=== PATIENT | female | born 1930 | race Caucasian/White ===

== ENCOUNTER 2018-03-31 16:13 | Inpatient (IN) | payer OTHER, BC ==
--- NOTE | 2018-03-31 16:27 | PDOC ---
History of Present Illness - General Stated Complaint: WEAKNESS Time Seen by Provider: 03/31/18 16:26 History Source: Care Provider, Friend - History of Present Illness Initial Comments: 03/31/18 17:15 87 year old female with PMH COPD, bronchitis, giant cell temporal arteritis, HLD, HTN, diverticulosis, GERD, CHF, HTN, paroxsymal atrial fibrillation, dementia presenting to ED for decreased oral intake, abdominal pain and vomiting x11 days. Per medical aid pt has been vomiting every meal she has consumed since a couple of days after she was discharged from [facility]. She was admitted 03/09/18 for decreased oral intake and nausea, was diagnosed with a partial SBO and hypokalemia, and was discharged on 03/18/18. Pt also complains of left flank pain, better with rest, worse with movement or palpation, since she left the hospital. Pt admits to generalized weakness and lightheadedness. Pt denies chest pain, shortness of breath, palpitations, cough, blood in stool, hematuria, dysuria, dizziness, limb weakness, fever, chills, sweats. PCP - Julia Allergies - Codeine 03/31/18 18:10 Pt's son arrived. He states that she has been able to keep down some soup and jello. He reports that she has "pain all over" normally and that the pain to palpation of her lower extremities is normal for her. Past History - Past Medical History Allergies/Adverse Reactions: Allergies Allergy/AdvReac Type Severity Reaction Status Date / Time codeine Allergy Intermediate Verified 03/31/18 17:18 Home Medications: Ambulatory Orders Alprazolam 0.25 mg PO BID 03/14/15 Atorvastatin Ca [Lipitor] 10 mg PO HS 03/14/15 Furosemide [Lasix -] 40 mg PO BID 03/14/15 Losartan Potassium 50 mg PO DAILY 03/14/15 Mesalamine [Lialda] 3.6 gm PO DAILY 03/14/15 Ranitidine [Zantac -] 150 mg PO DAILY 03/14/15 Cholecalciferol (Vitamin D3) [Vitamin D3] 1,000 unit PO DAILY 01/22/18 Cyanocobalamin (Vitamin B-12) [Vitamin B-12] 2,500 mcg SL ASDIR 01/22/18 Prednisone 5 mg PO BID #100 tablet 01/26/18 Primidone 50 mg PO DAILY 03/09/18 Anemia: Yes Asthma: No Cancer: No Cardiac Disorders: Yes ([place], ASHD, HCVD) CVA: Yes ([place]) COPD: Yes CHF: Yes DVT: No Dementia: No Diabetes: No GI Disorders: Yes (GERD, DIVERTCULOSIS) Disorders: No HTN: Yes Hypercholesterolemia: Yes Liver Disease: No Seizures: No Thyroid Disease: No - Surgical History Abdominal Surgery: No Appendectomy: No Cardiac Surgery: No Cholecystectomy: Yes Lung Surgery: No Neurologic Surgery: No Orthopedic Surgery: No - Immunization History Immunization Up to Date: Yes - Suicide/Smoking/Psychosocial Hx Smoking Status: No Smoking History: Former smoker Have you smoked in the past 12 months: No Number of Cigarettes Smoked Daily: 0 If you are a former smoker, when did you quit?: many years ago Hx Alcohol Use: No Drug/Substance Use Hx: No Substance Use Type: None Hx Substance Use Treatment: No Review of Systems - Review of Systems Able to Perform ROS?: Yes Comments:: 03/31/18 17:31 General: admits to generalized weakness. denies fever, chills, night sweats. HEENT: denies sore throat, rhinorrhea, ear pain. Heart: admits to lightheadedness. denies chest pain, palpitations, syncope, lower extremity swelling, diaphoresis. Respiratory: denies shortness of breath, cough, sputum production, hematemesis. Abdomen: admits to abdominal pain, nausea, vomiting. denies diarrhea, constipation, blood in stool. : admits to left flank pain. denies dysuria, increased urinary frequency, hematuria, urinary incontinence. Back: denies back pain. Musculoskeletal: denies joint pain, muscle pain, joint swelling. Neurological: denies headache, dizziness, numbness, tingling, weakness. Skin: admits to wound to left lower extremity. *Physical Exam - Physical Exam Comments: 03/31/18 17:38 Appearance: comfortable. HEENT: head is normocephalic, atraumatic. EOMI. PERRLA. Neck: supple. Full ROM. Heart: regular rhythm. no murmurs, rubs or gallops. No pericardial friction rub. Lungs: clear to auscultation bilaterally. no crackles, rhonchi or wheezing. no stridor. Abdomen: soft, nontender. normal bowel sounds. no rebound, guarding. left flank ptenderness to palpation. Extremities: Peripheral pulses intact and equal. No lower extremity edema. Neurological: Alert. Oriented to person and place. CN 2-12 grossly intact. Moves all four extremities. Skin: two small ulcers to anterior left lower leg, dressing re-applied. generalized tenderness to palpation of right lower extremity and left lower extremity. 03/31/18 17:58 Pt reassessed. Abdomen: soft. tenderness to palpation to RLQ and RUQ, worse in RLQ. no rebound. no guarding. unable to perform obturator or psoas test due to pt's leg pain. Heart Score/ECG Review - ECG Impressions Comment:: 03/31/18 18:39 Rate 97, regular rhythm, normal axis, ST depression V3, V3. Similar to prior EKG performed on 03/09/18. ED Treatment Course - LABORATORY CBC & Chemistry Diagram: 04/01/18 06:00 04/01/18 06:00 Medical Decision Making - Medical Decision Making 03/31/18 17:40 87 year old female with PMH COPD, bronchitis, giant cell temporal arteritis, HLD , HTN, diverticulosis, GERD, CHF, HTN, paroxsymal atrial fibrillation, dementia c/o nausea, abdominal pain, left flank pain, generalized weakness, lightheadedness x11 days. Pt was recently admitted for partial SBO, discharged on 03/18/18. Initial Vital Signs Temp Pulse Resp BP Pulse Ox 97.3 F L 100 H 22 103/78 99 03/31/18 17:03 03/31/18 17:03 03/31/18 17:03 03/31/18 17:03 03/31/18 17:03 Pending labs, EKG, CXR, CT abdomen. 03/31/18 18:39 Leukocytosis - 12.5 Left shift with elevated neutrophils. 03/31/18 19:05 Cardiac profile hemolyzed, order re-entered. I discussed the case with Dr. Leong, who will assume care for the patient in the Emergency Department. *DC/Admit/Observation/Transfer Diagnosis at time of Disposition: History of food intolerance, Nausea and vomiting - Discharge Dispostion Condition at time of disposition: Guarded - Referrals - Patient Instructions - Post Discharge Activity
[2018-03-31] MEDS ORDERED: ONDANSETRON 4 MG/2 ML VIAL IVPUSH ONE (18:01)
[2018-03-31 18:08] LABS: BASO % 0.3 % (0-2.0); EOS % 0.1 % (0-4.5); HEMATOCRIT 39.1 % (32.4-45.2); HEMOGLOBIN 12.6 GM/dL (10.7-15.3); LYMPH % 8.6 % (8-40); MCH 32.8 pg (25.7-33.7); MCHC 32.2 g/dl (32.0-36.0); MEAN PLT VOLUME 11.1 fl (7.5-11.1); MONO % 6.2 % (3.8-10.2); NEUT % 84.8 % (42.8-82.8); PLATELET COUNT 313 K/MM3 (134-434); RBC 3.83 M/mm3 (3.60-5.2); WHITE BLOOD COUNT 12.5 K/mm3 (4.0-10.0)
--- NOTE | 2018-03-31 18:10 | PDOC ---
Attending Attestation - Resident Resident Name: Michelle Smith - ED Attending Attestation I have performed the following: I have examined & evaluated the patient, The case was reviewed & discussed with the resident, I agree w/resident's findings & plan, Exceptions are as noted - HPI HPI: 03/31/18 18:08 87 yo female came in with aide who states that the pt has had nausea,vomiting, diarrhea and left flank pain since her discharge Mar 23 - Physicial Exam PE: 03/31/18 18:27 87 yo female BIBA from home with home health aide head ncat oral dry,mucus membranes neck supple lungs cta b/l cvs [id number] abd rt flank tenderness skin dry and warm neuro alert,moving her extremities - Medical Decision Making 03/31/18 18:10 87 yo female recently admitted 03/09/18 for partial SBO and d/c Mar 23 is here today for persistent vomiting and loose stools and decreased po intake PMH anemia,HTN,HLD,GERD,dementia,SBO 03/31/18 18:13 ekg nsr @97 bpm,
[2018-03-31 18:17] LABS: INR 0.96 (0.83-1.09); PROTHROMBIN TIME (PATIENT) 10.9 SEC (9.7-13.0)
[2018-03-31 18:20] LABS: ACTIVATED PTT 19.7 SECONDS (25.2-36.5)
[2018-03-31 19:05] LABS: ANISOCYTOSIS 1+; MACROCYTOSIS 1+; PLATELET ESTIMATE ADEQUATE
[2018-03-31] MEDS ORDERED: ONDANSETRON 4 MG/2 ML VIAL ONE ×2 (19:15→19:52)
--- NOTE | 2018-03-31 19:31 | PDOC ---
*Physical Exam - Vital Signs Last Vital Signs Temp Pulse Resp BP Pulse Ox 97.3 F L 100 H 22 103/78 99 03/31/18 17:03 03/31/18 17:03 03/31/18 17:03 03/31/18 17:03 03/31/18 17:03 ED Treatment Course - LABORATORY CBC & Chemistry Diagram: 03/31/18 17:30 03/31/18 19:20 - ADDITIONAL ORDERS Additional order review: Laboratory Results 03/31/18 03/31/18 03/31/18 17:30 17:30 17:30 PT with INR 10.90 INR 0.96 PTT (Actin FS) 19.7 L Lactic Acid 1.1 Creatine Kinase Cancelled Troponin I Cancelled 03/31/18 17:30 RBC 3.83 MCV 102.0 H MCHC 32.2 RDW 19.0 H MPV 11.1 Neutrophils % 84.8 H Lymphocytes % 8.6 D Monocytes % 6.2 Eosinophils % 0.1 D Basophils % 0.3 - Medications Given in the ED: ED Medications Discontinued Medications Generic Name Dose Route Start Last Admin Trade Name Freq PRN Reason Stop Dose Admin Ondansetron HCl 4 mg 03/31/18 18:01 03/31/18 19:15 Zofran Injection IVPUSH 03/31/18 18:02 4 mg ONCE ONE Administration Medical Decision Making - Medical Decision Making 03/31/18 19:30 The patient was signed out to me by , day team. The patient is an 87F who presents with intractable nausea and vomiting and inability to tolerate PO. BG noted to be 61. Giving 1 amp of D50. 03/31/18 22:01 I have endorsed the patient to [employer]PER[employer] Micaela for admission under Dr. Thomas. *DC/Admit/Observation/Transfer Diagnosis at time of Disposition: History of food intolerance Nausea and vomiting Qualifiers: Vomiting type: unspecified Vomiting Intractability: intractable Qualified Code( s): R11.2 - Nausea with vomiting, unspecified - Discharge Dispostion Condition at time of disposition: Guarded Decision to Admit order: Yes - Referrals Referrals: Lashanda Dumont MD [Primary Care Provider] - - Patient Instructions - Post Discharge Activity
[2018-03-31 19:53] LABS: URINE APPEARANCE CLOUDY; URINE BILIRUBIN NEGATIVE (<2.0 mg/dL); URINE COLOR YELLOW; URINE GLUCOSE (UA) NEGATIVE (NEGATIVE); URINE KETONE 2+ (NEGATIVE); URINE NITRITE NEGATIVE (NEGATIVE); URINE UROBILINOGEN NEGATIVE mg/dL (0.2-1.0)
[2018-03-31 19:59] LABS: URINE LEUK ESTERASE 3+ (NEGATIVE); URINE PROTEIN 1+ (NEGATIVE)
[2018-03-31 20:01] LABS: ALBUMIN 3.1 g/dl (3.4-5.0); ALK PHOS 123 U/L (45-117); ANION GAP 27 MMOL/L (8-16); BILIRUBIN,TOTAL 0.5 mg/dL (0.2-1.0); BLOOD UREA NITROGEN 18 mg/dL (7-18); CALCIUM 9.1 mg/dL (8.5-10.1); CHLORIDE 101 mmol/L (98-107); CO2 11 mmol/L (21-32); GLUCOSE,RANDOM 61 mg/dL (74-106); SGOT/AST 39 U/L (15-37); SGPT/ALT 28 U/L (12-78); SODIUM 139 mmol/L (136-145); TOT PROT 6.7 g/dl (6.4-8.2)
[2018-03-31 20:04] LABS: URINE BACTERIA RARE /hpf (NONE SEEN); URINE HYALINE CAST 7 /lpf
[2018-03-31] MEDS ORDERED: CEFTRIAXONE 1,000 MG in DEXTROSE 5%-WATER - 50 ML IVPB ONE (20:43)
[2018-03-31] MEDS ORDERED: CEFTRIAXONE 1 GM/50 ML BAG ONE (20:51)
[2018-03-31] MEDS ORDERED: DEXTROSE 50%-WATER 25 GM/50 ML DISP.SYRIN ONE (21:24)
[2018-03-31] MEDS ORDERED: DEXTROSE 50%-WATER - 25 GM/50 ML VIAL IVPUSH ONE (21:27)
--- NOTE | 2018-03-31 22:01 | HP ---
Admitting History and Physical - Admission History of Present Illness: This is a 87 y/o woman with a past medical history of COPD, Bronchitis, Giant Cell Temporal Arteritis, HLD, HTN, Diverticulosis, GERD, CHF, HTN, Paroxsymal Atrial Fibrillation, Dementia. Who presents to the ED from home with her INFORMATION SECURITY ASSOCIATE for decreased oral intake, abdominal pain and vomiting x11 days. Per the INFORMATION SECURITY ASSOCIATE, the patient has been vomiting every meal she has consumed since a couple of days after she was discharged from [facility]. She was admitted 03/09/18 for decreased oral intake and nausea, was diagnosed with a partial SBO and hypokalemia, and was discharged on 03/18/18. Pt also complains of left flank pain, better with rest, worse with movement or palpation, since she left the hospital. Pt admits to generalized weakness and lightheadedness. Pt denies chest pain, shortness of breath, palpitations, cough, blood in stool, hematuria, dysuria, dizziness, limb weakness, fever, chills, sweats. 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: Dementia Cardiovascular: Yes: AFIB, CAD, HTN, Hyperlipdemia Pulmonary: Yes: COPD Gastrointestinal: Yes: Gastritis, GERD Renal/: Yes: UTI Musculoskeletal: Yes: Chronic low back pain, Osteoarthritis, Other (compresion fx) Rheumatology: Yes: Other (ct ds) Endocrine: Yes: Other (osteoporosis) - Past Surgical History Past Surgical History: Yes: Cholecystectomy - Smoking History Smoking history: Former smoker Have you smoked in the past 12 months: No Aproximately how many cigarettes per day: 0 If you are a former smoker, when did you quit?: many years ago - Alcohol/Substance Use Hx Alcohol Use: No History of Substance Use: reports: None - Social History Usual Living Arrangement: Yes: With Parent ADL: Support Services History of Recent Travel: No Home Medications - Allergies Allergies/Adverse Reactions: Allergies Allergy/AdvReac Type Severity Reaction Status Date / Time codeine Allergy Intermediate Verified 03/31/18 17:18 - Home Medications Home Medications: Ambulatory Orders Alprazolam 0.25 mg PO BID 03/14/15 Atorvastatin Ca [Lipitor] 10 mg PO HS 03/14/15 Furosemide [Lasix -] 40 mg PO BID 03/14/15 Losartan Potassium 50 mg PO DAILY 03/14/15 Mesalamine [Lialda] 3.6 gm PO DAILY 03/14/15 Ranitidine [Zantac -] 150 mg PO DAILY 03/14/15 Cholecalciferol (Vitamin D3) [Vitamin D3] 1,000 unit PO DAILY 01/22/18 Cyanocobalamin (Vitamin B-12) [Vitamin B-12] 2,500 mcg SL ASDIR 01/22/18 Prednisone 5 mg PO BID #100 tablet 01/26/18 Primidone 50 mg PO DAILY 03/09/18 Family Disease History - Family Disease History Family History: Unable to Obtain Review of Systems Unable to obtain ROS, reason: Dementia Physical Examination Vital Signs: Vital Signs Temperature 97.3 F L 03/31/18 17:03 Pulse Rate 90 03/31/18 21:35 Respiratory Rate 18 03/31/18 21:35 Blood Pressure 110/45 03/31/18 21:35 O2 Sat by Pulse Oximetry (%) 99 03/31/18 21:35 Constitutional: Yes: Anxious Eyes: Yes: Conjunctiva Clear, PERRL HENT: Yes: WNL, Atraumatic, Normocephalic Neck: Yes: WNL, Supple, Trachea Midline Cardiovascular: Yes: Tachycardia, S1, S2 Respiratory: Yes: WNL, Regular, CTA Bilaterally Gastrointestinal: Yes: Hypoactive Bowel Sounds, Tenderness (generalized), Tenderness, Epigastrium ...Rectal Exam: Yes: Deferred Renal/: Yes: Incontinence Breast(s): Yes: WNL Musculoskeletal: Yes: WNL Extremities: Yes: WNL Edema: No Peripheral Pulses WNL: Yes Wound/Incision: Yes: Clean/Dry Neurological: Yes: Confusion, Cran Nerves II-XII Intact ...Motor Strength: WNL Psychiatric: Yes: Alert Labs: CBC, BMP 03/31/18 17:30 03/31/18 19:20 Laboratory Results - last 24 hr 03/31/18 03/31/18 03/31/18 17:30 17:30 17:30 WBC 12.5 H RBC 3.83 Hgb 12.6 Hct 39.1 D MCV 102.0 H MCH 32.8 MCHC 32.2 RDW 19.0 H Plt Count 313 D MPV 11.1 Absolute Neuts (auto) 10.6 H Total Counted 100 Neutrophils % 84.8 H Neutrophils % (Manual) 80.0 Band Neutrophils % 7.0 Lymphocytes % 8.6 D Lymphocytes % (Manual) 9.0 D Monocytes % 6.2 Monocytes % (Manual) 4 Eosinophils % 0.1 D Basophils % 0.3 Nucleated RBC % 0 Hypochromia 1+ Platelet Estimate Adequate Platelet Comment No clumping noted Anisocytosis 1+ Macrocytosis 1+ PT with INR 10.90 INR 0.96 PTT (Actin FS) 19.7 L Sodium Potassium Chloride Carbon Dioxide Anion Gap BUN Creatinine Creat Clearance w eGFR Random Glucose Lactic Acid Calcium Magnesium Total Bilirubin AST ALT Alkaline Phosphatase Creatine Kinase Cancelled Troponin I Cancelled Total Protein Albumin Lipase Urine Color Urine Appearance Urine pH Ur Specific Mize Urine Protein Urine Glucose (UA) Urine Ketones Urine Blood Urine Nitrite Urine Bilirubin Urine Urobilinogen Ur Leukocyte Esterase Urine WBC (Auto) Urine RBC (Auto) Urine Bacteria Hyaline Casts 03/31/18 03/31/18 03/31/18 17:30 17:30 19:20 WBC RBC Hgb Hct MCV MCH MCHC RDW Plt Count MPV Absolute Neuts (auto) Total Counted Neutrophils % Neutrophils % (Manual) Band Neutrophils % Lymphocytes % Lymphocytes % (Manual) Monocytes % Monocytes % (Manual) Eosinophils % Basophils % Nucleated RBC % Hypochromia Platelet Estimate Platelet Comment Anisocytosis Macrocytosis PT with INR INR PTT (Actin FS) Sodium Cancelled Potassium Cancelled Chloride Cancelled Carbon Dioxide Cancelled Anion Gap Cancelled BUN Cancelled Creatinine Cancelled Creat Clearance w eGFR Cancelled Random Glucose Cancelled Lactic Acid 1.1 Calcium Cancelled Magnesium 1.8 Total Bilirubin Cancelled AST Cancelled ALT Cancelled Alkaline Phosphatase Cancelled Creatine Kinase Troponin I Total Protein Cancelled Albumin Cancelled Lipase Cancelled Urine Color Urine Appearance Urine pH Ur Specific Mize Urine Protein Urine Glucose (UA) Urine Ketones Urine Blood Urine Nitrite Urine Bilirubin Urine Urobilinogen Ur Leukocyte Esterase Urine WBC (Auto) Urine RBC (Auto) Urine Bacteria Hyaline Casts 03/31/18 03/31/18 03/31/18 19:20 19:20 19:30 WBC RBC Hgb Hct MCV MCH MCHC RDW Plt Count MPV Absolute Neuts (auto) Total Counted Neutrophils % Neutrophils % (Manual) Band Neutrophils % Lymphocytes % Lymphocytes % (Manual) Monocytes % Monocytes % (Manual) Eosinophils % Basophils % Nucleated RBC % Hypochromia Platelet Estimate Platelet Comment Anisocytosis Macrocytosis PT with INR INR PTT (Actin FS) Sodium 139 Potassium 4.0 Chloride 101 Carbon Dioxide 11 L Anion Gap 27 H BUN 18 Creatinine 1.0 Creat Clearance w eGFR 52.45 Random Glucose 61 L Lactic Acid Calcium 9.1 Magnesium Total Bilirubin 0.5 AST 39 H ALT 28 Alkaline Phosphatase 123 H D Creatine Kinase 83 Troponin I 0.05 Total Protein 6.7 Albumin 3.1 L Lipase Urine Color Yellow Urine Appearance Cloudy Urine pH 6.0 Ur Specific Mize 1.012 Urine Protein 1+ H Urine Glucose (UA) Negative Urine Ketones 2+ H Urine Blood Negative Urine Nitrite Negative Urine Bilirubin Negative Urine Urobilinogen Negative Ur Leukocyte Esterase 3+ H Urine WBC (Auto) 478 Urine RBC (Auto) 6 Urine Bacteria Rare Hyaline Casts 7 Imaging - Results Chest X-ray: Report Reviewed, Image Reviewed Cat Scan: Report Reviewed, Image Reviewed EKG: Pending Assessment/Plan 87 y/o woman with a PMHx of Dementia, Afib, CAD, COPD, CAD, HTN, HLD, Gastritis , GERD, UTI placed in Observation for Intractable Vomiting, Abdominal Pain. Plan: 1. GI: Nausea and Vomiting, Abdominal Pain, Gastritis r/o Obstruction, Esophageal Stricture CTAP- no acute pathology Barium Swallow done 03/16/18- impaired propulsion of the bolus. with verbal cues and encouragement patient was able to tolerate all consistencies Appreciate GI consult Keep NPO IVF Monitor CBC, BMP Monitor vitals HOB elevated Aspiration Precautions 2. Cardiovascular: Afib, HTN, CAD, HLD EKG-pending Continue home meds when cleared by GI Monitor renal function Monitor LFTs 3. Dementia Continue home med Fall precautions 4. COPD stable Albuterol neb prn No current home med 5. FEN D51/2NS@42ml/hr Replete lytes prn NPO 6. DVT ppx TEDs SCDs Consider AC if LOS < 48hrs Code Status: Full Code Dispo: Observation Visit type - Emergency Visit Emergency Visit: Yes ED Registration Date: 03/31/18 Care time: The patient presented to the Emergency Department on the above date and was hospitalized for further evaluation of their emergent condition. - New Patient This patient is new to me today: Yes Date on this admission: 03/31/18 - Critical Care Critical Care patient: No Hospitalist Screening - Colonoscopy Questionnaire Colonoscopy Questionnaire: Colonoscopy Questionnaire - Patient: 50 - 75 years old and never had a screening colonoscopy: Unknown History of colon or rectal polyps, or CA: Unknown History of IBD, Crohn's disease or UC: Unknown History of abdominal radiation therapy as a child: Unknown - Relative: 1 with colon or rectal CA, or polyps at age 60 or younger: Unknown Colon or rectal CA diagnosed at age 45 or younger: Unknown Multiple relatives with colon or rectal CA: Unknown - Outcome: Screening Result: Negative Screen
[2018-03-31] MEDS ORDERED: DEXTROSE 5%-0.45% SALINE 1,000 ML IV SCH (22:15)
[2018-04-01 06:38] LABS: BASO % 0.7 % (0-2.0); EOS % 0.4 % (0-4.5); HEMATOCRIT 34.7 % (32.4-45.2); HEMOGLOBIN 11.2 GM/dL (10.7-15.3); LYMPH % 9.3 % (8-40); MCH 32.4 pg (25.7-33.7); MCHC 32.2 g/dl (32.0-36.0); MEAN CELL VOLUME 100.4 fl (80-96); MEAN PLT VOLUME 10.2 fl (7.5-11.1); MONO % 9.7 % (3.8-10.2); NEUT % 79.9 % (42.8-82.8); PLATELET COUNT 218 K/MM3 (134-434); RBC 3.46 M/mm3 (3.60-5.2); RDW 18.7 % (11.6-15.6); WHITE BLOOD COUNT 10.8 K/mm3 (4.0-10.0)
[2018-04-01 07:11] LABS: ANION GAP 19 MMOL/L (8-16); BLOOD UREA NITROGEN 21 mg/dL (7-18); CALCIUM 8.2 mg/dL (8.5-10.1); CHLORIDE 101 mmol/L (98-107); CO2 17 mmol/L (21-32); CREATININE 1.2 mg/dL (0.55-1.02); GLUCOSE,RANDOM 62 mg/dL (74-106); POTASSIUM 3.6 mmol/L (3.5-5.1); SODIUM 137 mmol/L (136-145)
--- NOTE | 2018-04-01 08:56 | PN ---
Progress Note, Physician History of Present Illness: 87 yo female with PMH anemia,HTN,HLD,GERD,dementia,SBO recently admitted for partial SBO and d/c Mar 23 came into the ER for persistent vomiting and loose stools and decreased po intake - Current Medication List Current Medications: Active Medications Dextrose/Sodium Chloride (D5-1/2ns -) 1,000 mls @ 42 mls/hr IV ASDIR MERLE Last Admin: 03/31/18 22:11 Dose: 42 mls/hr Ceftriaxone Sodium 1 gm/ (Dextrose) 50 mls @ 100 mls/hr IVPB DAILY MERLE; Protocol Ondansetron HCl (Zofran Injection) 4 mg IVPUSH Q6H PRN PRN Reason: NAUSEA - Objective Vital Signs: Vital Signs Temperature 97.4 F L 04/01/18 08:27 Pulse Rate 92 H 04/01/18 08:27 Respiratory Rate 20 04/01/18 08:27 Blood Pressure 112/70 04/01/18 08:27 O2 Sat by Pulse Oximetry (%) 99 04/01/18 06:44 Cardiovascular: Yes: S1, S2 Respiratory: Yes: Regular, Rales Gastrointestinal: Yes: Normal Bowel Sounds, Soft. No: Tenderness Labs: CBC, BMP 04/01/18 06:00 04/01/18 06:00 INR, PTT INR 0.96 (0.83-1.09) 03/31/18 17:30 Problem List - Problems (1) Nausea and vomiting Assessment/Plan: -REsolved -Await cultures -Cdif -GI consult -ID consult -PPI Code(s): R11.2 - NAUSEA WITH VOMITING, UNSPECIFIED Qualifiers: Vomiting type: unspecified Vomiting Intractability: intractable Qualified Code(s): R11.2 - Nausea with vomiting, unspecified (2) Anxiety Assessment/Plan: -Resume meds Code(s): F41.9 - ANXIETY DISORDER, UNSPECIFIED (3) CAD (coronary artery disease) Assessment/Plan: same meds no cp Code(s): I25.10 - ATHSCL HEART DISEASE OF [place] CORONARY ARTERY W/O ANG PCTRS (4) COPD (chronic obstructive pulmonary disease) Assessment/Plan: -Nebs Code(s): J44.9 - CHRONIC OBSTRUCTIVE PULMONARY DISEASE, UNSPECIFIED
[2018-04-01] MEDS ORDERED: MESALAMINE 3.6 GM PO SCH (10:00)
[2018-04-01] MEDS ORDERED: cefTRIAXone SODIUM 1 GM VIAL ONE (10:30)
[2018-04-01] MEDS ORDERED: DEXTROSE 5%-WATER - 50 ML IVPB ONE (10:30)
[2018-04-01] MEDS: ONDANSETRON 4 MG/2 ML VIAL IVPUSH PRN ×2 (10:32→20:34)
[2018-04-01] MEDS: CEFTRIAXONE 1 GM in DEXTROSE 5%-WATER - 50 ML IVPB SCH (10:36)
[2018-04-01] MEDS ORDERED: DEXTROSE 50%-WATER - 25 GM/50 ML VIAL IVPUSH PRN (10:53)
[2018-04-01] MEDS: DEXTROSE 5%-0.45% SALINE 1,000 ML IV SCH (11:09)
[2018-04-01] MEDS: LOSARTAN POTASSIUM 50 MG TABLET (FP) PO SCH (11:58)
[2018-04-01] MEDS: FUROSEMIDE 40 MG TABLET (FP) PO SCH ×2 (11:58→13:15)
[2018-04-01] MEDS: PANTOPRAZOLE SODIUM 40 MG VIAL IVPUSH SCH ×2 (11:59→22:56)
[2018-04-01] MEDS: ALPRAZolam 0.25 MG TABLET PO PRN ×2 (11:59→22:54)
[2018-04-01] MEDS: predniSONE 10 MG TABLET (UD) PO SCH ×2 (11:59→22:53)
[2018-04-01] MEDS: PRIMIDONE 50 MG TABLET PO SCH (12:01)
--- NOTE | 2018-04-01 12:20 | EKG ---
Test Reason : Blood Pressure : / mmHG Vent. Rate : 097 BPM Atrial Rate : 097 BPM P-R Int : 142 ms QRS Dur : 076 ms QT Int : 374 ms P-R-T Axes : 051 012 144 degrees QTc Int : [address] changes anterior and lateral leads c/w ischemia POSTERIOR INFARCT , AGE UNDETERMINED ABNORMAL ECG WHEN COMPARED WITH ECG OF 09-MAR-2018 17:05, NONSPECIFIC T WAVE ABNORMALITY NO LONGER EVIDENT IN ANTERIOR LEADS Confirmed by CARLOS GATES MD ([id number]) on 04/01/2018 12:19:55 PM Referred By: Confirmed By:CARLOS GATES MD
[2018-04-01 14:49] LABS: ANISOCYTOSIS 1+; MACROCYTOSIS 1+
--- NOTE | 2018-04-01 16:50 | CON.GI ---
Consult Consult Specialty:: Gastroenterology Reason for Consultation:: nausea / dyspepsia - History of Present Illness Chief Complaint: nausea with associated heaving as per daughter History of Present Illness: Mrs. tAkinson is an 87 year old woman with a PMHX of COPD, bronchitis, temporal arteritis, HLD, HTN, diverticulosis, GERD , CHF, Paroxysmal atrial fibrillation , dementia who presents to the ER with complaints of decreased PO intake , nausea and vomiting. As per agusto daughter, her mother has not been able to eat anything over agusto past week. In addition, she states she has been pooling food in her mouth and not swallowing. She states she dry heaves frequently and always feels nausea. She was recently admitted in February for SBO and hypokalemia. She was sen in the past by Dr. Cotton - last endoscopic procedures were performed approximately 5 years ago. There is no report of hemetemesis, melena, hematochezia, fever, chills, weight loss. - History Source History Provided By: Family Member, Medical Record Limitations to Obtaining History: Dementia - Past Medical History OUTSOLE CASER: Yes: Dementia Cardio/Vascular: Yes: AFIB, CAD, HTN, Hyperlipdemia Pulmonary: Yes: COPD Gastrointestinal: Yes: Gastritis, GERD Renal/: Yes: UTI ...: No Musculoskeletal: Yes: Chronic low back pain, Osteoarthritis, Other (compresion fx) Rheumatology: Yes: Other (ct ds) Endocrine: Yes: Other (osteoporosis) - Past Surgical History Past Surgical History: Yes: Cholecystectomy - Alcohol/Substance Use Hx Alcohol Use: No History of Substance Use: reports: None - Smoking History Smoking history: Former smoker Have you smoked in the past 12 months: No Aproximately how many cigarettes per day: 0 If you are a former smoker, when did you quit?: many years ago - Social History Usual Living Arrangement: With Significant Other ADL: Support Services History of Recent Travel: No Home Medications - Allergies Allergies/Adverse Reactions: Allergies Allergy/AdvReac Type Severity Reaction Status Date / Time codeine Allergy Intermediate Verified 03/31/18 17:18 - Home Medications Home Medications: Ambulatory Orders Alprazolam 0.25 mg PO BID 03/14/15 Atorvastatin Ca [Lipitor] 10 mg PO HS 03/14/15 Furosemide [Lasix -] 40 mg PO BID 03/14/15 Losartan Potassium 50 mg PO DAILY 03/14/15 Mesalamine [Lialda] 3.6 gm PO DAILY 03/14/15 Ranitidine [Zantac -] 150 mg PO DAILY 03/14/15 Cholecalciferol (Vitamin D3) [Vitamin D3] 1,000 unit PO DAILY 01/22/18 Cyanocobalamin (Vitamin B-12) [Vitamin B-12] 2,500 mcg SL ASDIR 01/22/18 Prednisone 5 mg PO BID #100 tablet 01/26/18 Primidone 50 mg PO DAILY 03/09/18 Family Disease History - Family Disease History Family History: Unremarkable Review of Systems Unable to obtain ROS, reason: poor historian Findings/Remarks: limited review provided by her daughter - as per HPI - Review of Systems Constitutional: reports: Loss of Appetite, Weakness Eyes: denies: No Symptoms, Blind Spots, Blurred Vision, Double Vision, Eye Pain , Floaters, Photophobia, Recent Change in Vision, Other HENT: denies: No Symptoms, Difficult Swallowing, Ear Discharge, Ear Pain, Epistaxis, Gingival Bleeding, Hearing Loss, Mouth Swelling, Nasal Congestion, Ocular Prosthesis, Throat Pain, Toothache, Ringing in Ears, Other Neck: denies: No Symptoms, Decreased ROM, Lumps, Pain on Movement, Stiffness, Swollen Glands, Tenderness, Other Respiratory: denies: No Symptoms, Cough, Exercise Intolerance, Hemoptysis, Orthopnea, PND, Snoring, SOB, SOB on Exertion, Wheezing, Other Gastrointestinal: reports: Nausea, Vomiting Genitourinary: denies: No Symptoms, Burning, Discharge, Dysuria, Flank Pain, Frequency, Hematuria, Incontinence, Lesions, Menses, Pain, Testicular Mass, Testicular Pain, Testicular Swelling, Urgency, Vaginal Bleeding, Other Physical Exam-GI Vital Signs: Vital Signs Temperature 97.8 F 04/01/18 13:09 Pulse Rate 88 04/01/18 13:09 Respiratory Rate 17 04/01/18 13:09 Blood Pressure 131/66 04/01/18 13:09 O2 Sat by Pulse Oximetry (%) 97 04/01/18 09:30 Constitutional: Yes: No Distress Eyes: No: WNL, Conjunctiva Clear, EOM Intact, Cataracts, Diplopia, Occular Prosthesis, PERRL, Ptosis, Sclera Icterus, Tearing, Other HENT: No: WNL, Atraumatic, Normocephalic, Drooling, Epistaxis, Hoarseness, Nasal Congestion, Pharyngeal Erythema, Rhinnorhea, Thrush, Tonsillar Exudate, Other Neck: No: WNL, Supple, Trachea Midline, Decreased ROM, Lymphadenopathy, Rigid, Tenderness, Thyromegaly, Other Cardiovascular: No: WNL, Regular Rate and Rhythm, Bradycardia, Tachycardia, Pulse Irregular, Bruit, JVD, Gallop, Murmur, Rub, S1, S2, S3, S4, Varicosities, Other Respiratory: No: WNL, Regular, CTA Bilaterally, Accessory Muscle Use, Bradypnea , Rosales-Negrete, Cough, Diminished, Dullness, Hyperresonant, Intubated, Kussmaul , Mechanically Ventilated, On BiPap, On Nasal O2, On Venti-Mask, Orthopnea, Poor Air Entry, Rales, Rhonchi, SOB, SOB on Exertion, Stridor, Tachypnea, Wheezes, Other Gastrointestinal Inspection: Yes: WNL, Other (soft abdomen , nontender , normal bowel sounds) Labs: CBC, BMP 04/01/18 06:00 04/01/18 06:00 INR, PTT INR 0.96 (0.83-1.09) 03/31/18 17:30 Imaging - Results Chest X-ray: Report Reviewed Ultrasound: Pending Problem List - Problems (1) Nausea & vomiting Assessment/Plan: Impression: 1. Nausea / vomiting and inability to tolerate PO intake DDX includes peptic ulcer disease /biliary / gastroparesis 2. ? Oropharyngeal Dysphagia (Ct scan reviewed - wnl ) Recommendation: - esophagram and upper GI series , if no structural abnormality obtain gastric emptying study to assess her motility. - obtain a formal speech and swallow evaluation / Video swallow study - Protonix 40 mg IV qam - c/w antiemetics - trial of clear liquid diet Code(s): R11.2 - NAUSEA WITH VOMITING, UNSPECIFIED (2) Dysphagia Code(s): R13.10 - DYSPHAGIA, UNSPECIFIED Assessment/Plan see plan above
[2018-04-01] MEDS ORDERED: PT OWN MED DRAWER 7, Y5N ONE (16:57)
--- NOTE | 2018-04-01 17:47 | PN ---
Progress Note (short form) - Note Progress Note: ID consult dictated 87 year old female admitted with intractable nausea and vomiting apparently unable to eat or drink at home no diarrhea recent admission for partial sbo ct scan unremarkable unable to void all day now with simon- cloudy urine 300 cc UTI/urinary retention nausea/vomiting continue rocephin f/u with GI d/w daughter at bedside Problem List - Problems (1) UTI (urinary tract infection) Code(s): N39.0 - URINARY TRACT INFECTION, SITE NOT SPECIFIED (2) Nausea & vomiting Code(s): R11.2 - NAUSEA WITH VOMITING, UNSPECIFIED
--- NOTE | 2018-04-01 19:45 | CONS ---
DATE OF CONSULTATION: 04/01/2018 HISTORY OF PRESENT ILLNESS: This is an 87-year-old woman who was recently in the hospital from the to the 18 of March with what was felt to be a partial small bowel obstruction that resolved with conservative treatment. She now returns on the with complaints of nausea and vomiting per the patient and her aide, who stays with her 24 hours a day. The patient lives alone. She has not been able to eat since she has gone home. They deny any diarrhea. They say that she vomits and has nausea both to food as well as liquid. She has had a regular bowel movement at home. There has been no fever or chills. There has been no chest pain. She notes abdominal discomfort. Per her daughter, who is also present, her mom has had complaints of nausea and lack of appetite and poor taste of food for months now since the spring. This has persisted without any improvement. PAST MEDICAL HISTORY: Notable for dementia, atrial fibrillation, coronary artery disease, hypertension, hyperlipidemia, COPD, gastritis, GERD. She has a history of UTI in the past, chronic low back pain, osteoarthritis, osteoporosis. As well, she has a history of giant cell temporal arteritis and diverticulosis. SURGICAL HISTORY: Notable for cholecystectomy. SOCIAL HISTORY: She is a former smoker and quit many years ago. She lives alone and has an aide 24 hours a day. ALLERGIES: CODEINE. MEDICATIONS AT HOME: Include ranitidine, primidone, prednisone, mesalamine, losartan, furosemide, B12, vitamin D3, atorvastatin, and alprazolam. REVIEW OF SYSTEMS: As per HPI. HOSPITAL COURSE: Since admission, she has not had any urine output. The Benson catheter was just placed and she had 300 mL of cloudy urine. PHYSICAL EXAMINATION: General: She is awake and alert. She keeps stating "help me" and saying that she is nauseous. Vital Signs: She has been afebrile. Temperature is 97.7, pulse 88, blood pressure 125/69, respiratory rate is 18. She is saturating 96% on room air. HEENT: She is normocephalic. Eyes are anicteric. Neck: Supple. Lungs: Clear to auscultation. Heart: Regular rate and rhythm. Abdomen: Soft. She complains of discomfort everywhere on palpation. She has no rebound or guarding. Extremities: Without edema. The Benson is draining cloudy urine. LABORATORY: White count on admission was 12.5, on repeat today is 10.8, hemoglobin 11.2, platelets are 218. BUN is 21, creatinine is 1.2. Urinalysis is notable for 3+ leukocytes with 478 white cells. IN SUMMARY: This is an elderly woman admitted with intractable nausea and vomiting of unclear etiology. Computed tomography scan of the abdomen and pelvis was done in the emergency room and is unremarkable. She has no diarrhea. She had a recent admission for partial small bowel obstruction and now she has urinary retention with evidence of urinary tract infection. I would recommend that we treat her for the urinary tract infection and would continue the Rocephin that has been started for her nausea and vomiting. I would recommend a followup with Gastroenterology. Further recommendations to follow. ELVIRA SAAB M.D. [id number]
[2018-04-01] MEDS ORDERED: ACETAMINOPHEN 325 MG TABLET (FP) PO ONE (20:48)
[2018-04-01] MEDS ORDERED: LIDOCAINE PATCH REMOVAL MC ONE (21:02)
[2018-04-01] MEDS ORDERED: ATORVASTATIN CA 10 MG TABLET (FP) PO SCH (22:00)
[2018-04-01] MEDS ORDERED: LORazepam 2 MG/ML SDV VIAL IVPUSH ONE (23:45)
[2018-04-02] MEDS: ONDANSETRON 4 MG/2 ML VIAL IVPUSH PRN (04:25)
[2018-04-02] MEDS: DEXTROSE 5%-0.45% SALINE 1,000 ML IV SCH ×3 (04:31→16:52)
[2018-04-02] MEDS: FUROSEMIDE 40 MG TABLET (FP) PO SCH (05:32)
[2018-04-02] MEDS ORDERED: PT OWN MED DRAWER 7, Y5N ONE (06:29)
[2018-04-02] MEDS ORDERED: DEXTROSE 5%-WATER - 50 ML IVPB ONE (09:15)
[2018-04-02] MEDS ORDERED: cefTRIAXone SODIUM 1 GM VIAL ONE (09:15)
[2018-04-02] MEDS: PANTOPRAZOLE SODIUM 40 MG VIAL IVPUSH SCH (09:18)
[2018-04-02] MEDS: CEFTRIAXONE 1 GM in DEXTROSE 5%-WATER - 50 ML IVPB SCH (09:22)
--- NOTE | 2018-04-02 09:40 | PN ---
Progress Note, Physician Chief Complaint: Nausea/vomiting History of Present Illness: Wants to eat upon sitting her up , pt started to belch and retch to vomit, pt unable to take anything pO Very anxious, has been spitting out her medications stating that she is nauseous. Unsure of the cause. CT abd/pel was unremarkable. Seen by GI On IVF - Current Medication List Current Medications: Active Medications Alprazolam (Xanax -) 0.25 mg PO BID PRN PRN Reason: ANXIETY Last Admin: 04/01/18 11:59 Dose: 0.25 mg Atorvastatin Calcium (Lipitor -) 10 mg PO HS MERLE Last Admin: 04/01/18 22:53 Dose: Not Given Dextrose (D50w (Vial) -) 25 gm IVPUSH PRN PRN PRN Reason: hypoglycemia Furosemide (Lasix -) 40 mg PO BIDLASIX MERLE Last Admin: 04/02/18 05:32 Dose: Not Given Ceftriaxone Sodium 1 gm/ (Dextrose) 50 mls @ 100 mls/hr IVPB DAILY [facility]; Protocol Last Admin: 04/02/18 09:22 Dose: 100 mls/hr Dextrose/Sodium Chloride (D5-1/2ns -) 1,000 mls @ 60 mls/hr IV ASDIR MERLE Last Admin: 04/02/18 04:31 Dose: 60 mls/hr Losartan Potassium (Cozaar -) 50 mg PO DAILY MERLE Last Admin: 04/01/18 11:58 Dose: 50 mg Metoclopramide HCl (Reglan Injection -) 10 mg IVPUSH Q8H MERLE Non-Formulary Medication (Mesalamine [Lialda]) 3.6 gm PO DAILY MERLE Last Admin: 04/01/18 16:56 Dose: Not Given Ondansetron HCl (Zofran Injection) 4 mg IVPUSH Q6H PRN PRN Reason: NAUSEA Last Admin: 04/02/18 04:25 Dose: 4 mg Pantoprazole Sodium (Protonix Iv) 40 mg IVPUSH BID MERLE Last Admin: 04/02/18 09:18 Dose: 40 mg Prednisone (Deltasone -) 10 mg PO BID MERLE Last Admin: 04/01/18 22:53 Dose: Not Given Primidone (Mysoline -) 50 mg PO DAILY [facility] Last Admin: 04/01/18 12:01 Dose: 50 mg - Objective Vital Signs: Vital Signs Temperature 97.7 F 04/02/18 07:58 Pulse Rate 90 04/02/18 07:58 Respiratory Rate 20 04/02/18 07:58 Blood Pressure 110/64 04/02/18 07:58 O2 Sat by Pulse Oximetry (%) 97 04/02/18 05:09 Constitutional: Yes: Well Nourished, Anxious, Mild Distress Cardiovascular: Yes: Regular Rate and Rhythm Respiratory: Yes: Regular Gastrointestinal: Yes: Hyperactive Bowel Sounds Musculoskeletal: Yes: Muscle Weakness Neurological: Yes: Alert, Pre-Existing Deficit Psychiatric: Yes: Alert Labs: CBC, BMP 04/01/18 06:00 04/01/18 06:00 INR, PTT INR 0.96 (0.83-1.09) 03/31/18 17:30 Problem List - Problems (1) Anxiety Assessment/Plan: -Causing N/V? -unable to take po benzo -would try IV standing lorazepam Code(s): F41.9 - ANXIETY DISORDER, UNSPECIFIED (2) Nausea & vomiting Assessment/Plan: -Cause unknown -last endoscopy 5 years ago -On zofran [id number] to relieve symptoms -will try reglan standing -IVF -NPO except ice chips, although swallow recommended advancing diet, unsure if pt can tolerate since she is consistently retching -change po meds to IV -Would try to explore neurological or psychological causes Code(s): R11.2 - NAUSEA WITH VOMITING, UNSPECIFIED (3) Dysphagia Assessment/Plan: -seen by swallow eval -MBS recently done Code(s): R13.10 - DYSPHAGIA, UNSPECIFIED (4) Abnormal liver enzymes Assessment/Plan: -labs in AM Code(s): R74.8 - ABNORMAL LEVELS OF OTHER SERUM ENZYMES Assessment/Plan see problem list
--- NOTE | 2018-04-02 10:19 | CONSULT ---
Admitting History and Physical - Primary Care Physician PCP: Lashanda Dumont - Admission History of Present Illness: 87 y/o woman with a PMHx of Dementia, Afib, CAD, COPD, CAD, HTN, HLD, Gastritis , GERD, UTI admitted for c/o nausea and abdominal discomfort Admitted recently, spitting saliva, c/o inability to swallow. Advanced from clear liquids to full, to soft solids. Needed much encouragement but accepted food from family well before discharge. Modified Barium Swallow done 03/16/18- Oral holding but with verbal cues, tolerated all consistencies. Mild tertiary contractions with delayed emptying. Microbiology 03/31/18 19:30 Urine - Urine - Catheterized Urine Culture - Preliminary Lactose Fermenting Neg Bacilli History Source: Caregiver Limitations to Obtaining History: Clinical Condition, Dementia (c/o stomach pain and nausea. Spitting saliva at times. Belching.No reported vomiting.) - Past Medical History TAX AGENT: Yes: Dementia Cardiovascular: Yes: AFIB, CAD, HTN, Hyperlipdemia Pulmonary: Yes: COPD Gastrointestinal: Yes: Gastritis, GERD Renal/: Yes: UTI ...: No Musculoskeletal: Yes: Chronic low back pain, Osteoarthritis, Other (compresion fx) Rheumatology: Yes: Other (ct ds) Endocrine: Yes: Other (osteoporosis) - Past Surgical History Past Surgical History: Yes: Cholecystectomy - Advance Directives Advance Directives: Yes: Health Care Proxy - Smoking History Smoking history: Former smoker Have you smoked in the past 12 months: No Aproximately how many cigarettes per day: 0 If you are a former smoker, when did you quit?: many years ago - Alcohol/Substance Use Hx Alcohol Use: No History of Substance Use: reports: None - Social History ADL: Support Services History of Recent Travel: No History - Admission Reason For Visit: HISTORY OF FOOD INTOLERANCE/NAUSEA AND VOMITING - Diagnostics X-ray: Report Reviewed Modified Barium Swallow: Report Reviewed - General Mental Status: Awake and Alert, Able to Follow Commands, Anxious, Vague Attention: Intact, Distractible, Mild Impairment Ability to Follow Directions: Fair Head/Neck Control: Fair - Hearing Hearing: Impaired, Left Ear Hearing Aide: Yes With Patient: No Speech Evaluation - Communication Primary Language: GREENLANDIC Communication: Yes: Within Normal Limits - Speech Production Able to Make Needs Known: Yes: WNL Intelligibility: Yes: WNL - Speech Characteristics Voice Loudness: Normal Voice Pitch: Yes: Mildly High Voice Phonatory-based Quality: Yes: Normal Speech Pattern: Normal Speech Clarity: < 100% Nasal Resonance: Normal Articulation: Yes: Precise Rate of Speech: Intact - Language/Auditory Comprehension Follows: Yes: 1 Stage Simple Commands Observation: Able to respond to yes/no queries: Yes, Yes/No Confusion: No, Comprehends Conversational Speech: Yes (if loud enough), Benefits from Slow Speech: Yes, Benefits from Repetiton: Yes, Benefits from Increased Volume of Speech: Yes - Language/Verbal Expression Able to Communicate Wants and Needs: Yes: WNL - Swallow Evaluation/Bedside Assessment Current Nutritional Intake: NPO Oral Secretions: Yes: WFL Dentition: Yes: Adequate Facial Symmetry at Rest: Symmetrical Jaw Position: Closed at Rest Against Resistance Opening: Normal Against Resistance Closing: Normal Pucker Lips: Normal Smile: Normal Lingual Movement: Normal, Symmetric Lingual Speed of Movement: Normal Lingual Movement Strgth Against Opposition: Normal Lingual Movement Characteristics: Normal Laryngeal Elevation: WFL Laryngeal Movement: Able to Palpate Rate of Intake: Slow/Holding A-P Transit: WFL Timing of Swallow: WFL Coughing/Throat Clear: No Change in Voice: No Recommendations - Speech Evaluation, Impression/Plan Impression: c/o stomach pain and nausea. Spitting saliva at times. Belching.No reported vomiting. Accepted a few sips of water with good tolerance.Denied reverse flow, stating it "went down." c/o stomach pain and nausea. Spitting saliva at times. Belching.No reported vomiting.Pt refused all other intake. Accepted only water. r/o UTI-Pending final result - Dysphagia Impressions/Plan Dysphagia Impressions: Ongoing Evaluation *Silent aspiration: cannot be R/O at bedside Recommendations: Modified Barium Swallow (MBS ordered. Call placed to OYSTER SHUCKER to discuss as pt had MBS 03/16/18, is refusing all po trials except water, c/o nausea.) - Recommendations Diet Consistency: Other (Trial clear liquids, HOB fully elevated, small sips given over time.also,Ensure Clear?)
[2018-04-02] MEDS: METOCLOPRAMIDE HCL INJECTION 10 MG/2 ML VIAL IVPUSH SCH ×3 (10:44→17:21)
[2018-04-02] MEDS: PRIMIDONE 50 MG TABLET PO SCH (11:21)
[2018-04-02] MEDS: predniSONE 10 MG TABLET (UD) PO SCH (11:21)
[2018-04-02] MEDS: LOSARTAN POTASSIUM 50 MG TABLET (FP) PO SCH (11:35)
[2018-04-02] MEDS ORDERED: LOSARTAN POTASSIUM 50 MG TABLET (FP) PO SCH (11:56)
[2018-04-02] MEDS ORDERED: FUROSEMIDE 40 MG/4 ML INJECTABLE VIAL IVPUSH SCH (12:45)
--- NOTE | 2018-04-02 17:52 | PN ---
GI Progress Note Subjective: Appreciate Dr. Turner's input. Patient c/o inability to swallow. Seen by Elana Molina. Elana alludes to the patient being seen on recent admission and was advanced from clear liquids to full, to soft solids. Elana explained that she Needed much encouragement but accepted food from family well before discharge. Modified Barium Swallow done 03/16/18 and per Elana Molina' note today it revealed oral holding but with verbal cues, tolerated all consistencies. Mild tertiary contractions with delayed emptying. Patient states that she wants to go home. Upon observation, she seemed to be comfortable prior to my interacting with her. As I started talking to her she began intermittently belching. Unable to read about plan from AM note from PMD as it is a draft. - Objective Vital Signs: Vital Signs 1800 Temperature --- 04/02/18 14:54 Pulse Rate 91 04/02/18 14:54 Respiratory Rate 18 04/02/18 14:54 Blood Pressure 111/92 04/02/18 14:54 O2 Sat by Pulse Oximetry (%) 97 on RA 04/02/18 05:09 Constitutional: Calm Eyes: No: Sclera Icterus Cardiovascular: Yes: Regular Rate and Rhythm Respiratory: Yes: Diminished (at bases bilaterally with poor inspiratory effort) Gastrointestinal Inspection: Yes: Scars (+ oblique right sided abdominal scar). No: Distention ...Auscultate: Yes: Normoactive Bowel Sounds ...Palpate: Yes: Tenderness (TTP RUQ) ...Percussion: Yes: Tympanitic (mild tympany) Extremities: Yes: Other (Dressing on Left leg) Neurological: Yes: Alert Labs: CBC, BMP 04/01/18 06:00 04/01/18 06:00 INR, PTT INR 0.96 (0.83-1.09) 03/31/18 17:30 Hepatic Panel Total Bilirubin 0.5 mg/dL (0.2-1.0) 03/31/18 19:20 AST 39 U/L (15-37) H 03/31/18 19:20 ALT 28 U/L (12-78) 03/31/18 19:20 Alkaline Phosphatase 123 U/L (45-117) H D 03/31/18 19:20 Albumin 3.1 g/dl (3.4-5.0) L 03/31/18 19:20 - ....Imaging Cat Scan: Report Reviewed, Image Reviewed Problem List - Problems (1) History of food intolerance Assessment/Plan: Not clear what Ms. Atkinson's issue is at this point regarding her intolerance to eat or even take in liquids Consider evaluation for central etiology. ? neuro eval. ? psych eval Consider adjustment of home medication regimen as several of her medications can contribute to dyspeptic symptoms ? need for standing benzodiazapine therapy I stopped reglan as that hasn't seemed to help Could consider a solid gastric emptying study however she would have to eat an egg in order to do that Could consider an upper endoscopy however after discussion regarding potential risks of the procedure and the need for sedation, Ms. Atkinson stated that she did not want it performed and "wants to go home". No need for BID IV PPI LFTs were mildly elevated on admission. I ordered a repeat and if persistently elevated consider MRCP if she can tolerate if vomiting, consider FUA to assess for developing ileus. Code(s): Z87.19 - PERSONAL HISTORY OF OTHER DISEASES OF THE DIGESTIVE SYSTEM
--- NOTE | 2018-04-02 23:11 | CONSULT ---
Consult - text type - Consultation Consultation Note: NEUROLOGY CONSULTATION is greatly appreciated: Events reviewed and patient examined. This 87 yo RH woman lives alone with health aides 17/02. Claims she walks at home with walker. PMH of HTN, COPD, Temporal Arteritis, AFib, essential tremor (?) and dementia. Maintained on : Alprazolam 0.25 mg PO BID; Atorvastatin; Furosemide; Losartan; Mesalamine; Ranitidine; B-12; Prednisone 5 mg PO BID; and Primidone 50 mg. Admitted here 03/09-03/18 for failure to thrive with poor PO intake, nausea, vomiting and diarrhea. Small bowel obstruction was suspected. However, symptoms recurred upon discharge and Pt was readmitted 03/31 after 11 days of nausea, vomiting. Abdominopelvic CT NOT suggestive of SBO Swallowing eval suggests sequestration of bolus in mouth c/w advanced OMS. On ceftriaxone for UTI. JOLIE: Neck supple. No external head trauma. No bruits. Atrophic changes for calves- in bandages. Pale, pasty skin. NEURO: Sleeping but easily arousable. Ox [facility], her BDay, Trump but No month or year. Recalls 0/3 @ 3. + Glabella, snout, grasps. CN II-XII normal. Gag OK Rhythmic rest tremor. + cogwheel rigidity. Left Footdrop. Areflexic in the legs. Downgoing toes. No obvious dystaxia Decreased vibration to the knees. IMP: 1. Moderately severe, B/L cerebral dysfunction (OMS, Chronic) c/w Alzheimer 's disease. 2. Parkinsonian features 3. 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 4. Temporal Arteritis. SUGGEST: Check ESR, CRP Check TSH, T4, B12 Give parenteral thiamine 250 mg IVPB q 8 hrs x [address] scan of brain (C-). Thank you very much, Tim Gunn MD
[2018-04-02] MEDS: LORazepam 2 MG/ML SDV VIAL IVPUSH SCH (23:21)
[2018-04-03] MEDS: THIAMINE HCL 200 MG/2 ML VIAL IVPB SCH ×3 (05:06→22:29)
[2018-04-03] MEDS: DEXTROSE 5%-0.45% SALINE 1,000 ML IV SCH (05:07)
[2018-04-03 07:07] LABS: HEMATOCRIT 31.1 % (32.4-45.2); HEMOGLOBIN 10.2 GM/dL (10.7-15.3); MCH 32.5 pg (25.7-33.7); MCHC 32.7 g/dl (32.0-36.0); MEAN CELL VOLUME 99.3 fl (80-96); MEAN PLT VOLUME 10.4 fl (7.5-11.1); PLATELET COUNT 194 K/MM3 (134-434); RBC 3.13 M/mm3 (3.60-5.2); RDW 18.4 % (11.6-15.6); WHITE BLOOD COUNT 10.3 K/mm3 (4.0-10.0)
[2018-04-03 07:51] LABS: ALBUMIN 2.4 g/dl (3.4-5.0); ALBUMIN 2.5 g/dl (3.4-5.0); ANION GAP 13 MMOL/L (8-16); BILIRUBIN,DIRECT 0.2 mg/dL (0.0-0.2); BILIRUBIN,TOTAL 0.3 mg/dL (0.2-1.0); BLOOD UREA NITROGEN 22 mg/dL (7-18); CHLORIDE 101 mmol/L (98-107); CO2 21 mmol/L (21-32); CREATININE 1.2 mg/dL (0.55-1.02); GLUCOSE,RANDOM 98 mg/dL (74-106); SGOT/AST 37 U/L (15-37); SGPT/ALT 29 U/L (12-78); SODIUM 135 mmol/L (136-145); TOT PROT 5.3 g/dl (6.4-8.2)
[2018-04-03 07:52] LABS: ALK PHOS 104 U/L (45-117); BILIRUBIN,TOTAL 0.4 mg/dL (0.2-1.0); TOT PROT 5.3 g/dl (6.4-8.2)
[2018-04-03] MEDS: ACETAMINOPHEN 1000 MG/100 ML VIAL (NON FORMULARY) IVPB PRN ×2 (07:57→22:51)
[2018-04-03 08:27] LABS: POTASSIUM 2.7 mmol/L (3.5-5.1)
[2018-04-03] MEDS: LORazepam 2 MG/ML SDV VIAL IVPUSH SCH ×2 (09:10→21:21)
--- NOTE | 2018-04-03 09:16 | PN ---
Progress Note, Physician Chief Complaint: Nausea/vomiting History of Present Illness: Wants to eat upon sitting her up , pt started to belch and retch to vomit, pt unable to take anything pO Very anxious, has been spitting out her medications stating that she is nauseous. Unsure of the cause. CT abd/pel was unremarkable. Seen by GI Hypokalemic Seen by neurology tsh- hypothyroid, awaiting FT4 - Current Medication List Current Medications: Active Medications Acetaminophen (Ofirmev Injection -) 1,000 mg IVPB Q6H PRN PRN Reason: PAIN OR FEVER Last Admin: 04/03/18 07:57 Dose: 1,000 mg Atorvastatin Calcium (Lipitor -) 10 mg PO HS [facility] Last Admin: 04/01/18 22:53 Dose: Not Given Dextrose (D50w (Vial) -) 25 gm IVPUSH PRN PRN PRN Reason: hypoglycemia Ceftriaxone Sodium 1 gm/ (Dextrose) 50 mls @ 100 mls/hr IVPB DAILY [facility]; Protocol Last Admin: 04/02/18 09:22 Dose: 100 mls/hr Dextrose/Sodium Chloride (Dextrose 5%-Normal Saline+40 Meq Kcl -) 40 meq in 1, 000 mls @ 75 mls/hr IV ASDIR [facility] Potassium Chloride (Potassium Chloride 10 Meq Premix Ivpb -) 10 meq in 100 mls @ 100 mls/hr IVPB Q60M [facility] Stop: 04/03/18 12:14 Lorazepam (Ativan Injection -) 0.5 mg IVPUSH BID [facility] Last Admin: 04/02/18 23:21 Dose: 0.5 mg Losartan Potassium (Cozaar -) 50 mg PO DAILY [facility] Ondansetron HCl (Zofran Injection) 4 mg IVPUSH Q6H PRN PRN Reason: NAUSEA Last Admin: 04/02/18 04:25 Dose: 4 mg Pantoprazole Sodium (Protonix Iv) 40 mg IVPUSH DAILY [facility] Thiamine HCl (Vitamin B1 Injection -) 200 mg IVPB TID [facility] Stop: 04/05/18 23:00 Last Admin: 04/03/18 05:06 Dose: 200 mg - Objective Vital Signs: Vital Signs Temperature 97.5 F L 04/03/18 06:00 Pulse Rate 89 04/03/18 06:00 Respiratory Rate 18 04/03/18 06:00 Blood Pressure 114/53 04/03/18 06:00 O2 Sat by Pulse Oximetry (%) 98 04/02/18 21:00 Constitutional: Yes: Anxious, Mild Distress Cardiovascular: Yes: Regular Rate and Rhythm Respiratory: Yes: Regular Gastrointestinal: Yes: Hyperactive Bowel Sounds, Tenderness, Epigastrium Musculoskeletal: Yes: Muscle Weakness Neurological: Yes: Alert, Pre-Existing Deficit Psychiatric: Yes: Alert Labs: CBC, BMP 04/03/18 06:15 04/03/18 06:15 INR, PTT INR 0.96 (0.83-1.09) 03/31/18 17:30 Problem List - Problems (1) Anxiety Assessment/Plan: -Causing N/V? -unable to take po benzo -would try IV standing lorazepam Code(s): F41.9 - ANXIETY DISORDER, UNSPECIFIED (2) Nausea & vomiting Assessment/Plan: -Cause unknown -last endoscopy 5 years ago -On zofran [id number] to relieve symptoms -reglan discontinued by GI -IVF changed to D5NS+KCl 40 meq @75 cc/hr -NPO except ice chips, although swallow recommended advancing diet, unsure if pt can tolerate since she is consistently retching -change po meds to IV -Seen by Neurology -last MBS showed mildly delayed gastric emptying, cause of symptoms -Would try to explore neurological or psychological causes -HIDA- although pt had cholecystectomy, could there be stones in common bile duct? causing her symptoms? -Pt refuses Upper endoscopy -KUB shows gas, will try simethicone around the clock -Upper GI series Code(s): R11.2 - NAUSEA WITH VOMITING, UNSPECIFIED (3) Dysphagia Assessment/Plan: -seen by swallow eval -MBS recently done -Seen by Neurology - Code(s): R13.10 - DYSPHAGIA, UNSPECIFIED (4) Abnormal liver enzymes Assessment/Plan: -normal Code(s): R74.8 - ABNORMAL LEVELS OF OTHER SERUM ENZYMES (5) Hypokalemia Assessment/Plan: -change IVF to D5NS+KCl @ 75 cc/hr -KCl 10 meq x 3 -repeat labs in AM -Nephrology consult Code(s): E87.6 - HYPOKALEMIA Assessment/Plan see problem list
[2018-04-03 09:20] LABS: PLATELET ESTIMATE ADEQUATE
[2018-04-03] MEDS ORDERED: DEXTROSE 5%-WATER - 50 ML IVPB ONE (11:07)
[2018-04-03] MEDS ORDERED: cefTRIAXone SODIUM 1 GM VIAL ONE (11:07)
--- NOTE | 2018-04-03 11:10 | PN ---
Progress Note (short form) - Note Progress Note: Spoke with patient's son Jean Atkinson today via telephone. Explained to him about Ms. Atkinson's apprehension about having upper endoscopy performed. Patient was down for HIDA when I went to see her but she had a cholecystectomy in the past? Problem List - Problems (1) History of food intolerance Code(s): Z87.19 - PERSONAL HISTORY OF OTHER DISEASES OF THE DIGESTIVE SYSTEM
[2018-04-03] MEDS: PANTOPRAZOLE SODIUM 40 MG VIAL IVPUSH SCH (12:26)
[2018-04-03] MEDS: CEFTRIAXONE 1 GM in DEXTROSE 5%-WATER - 50 ML IVPB SCH (13:21)
[2018-04-03] MEDS: SIMETHICONE 40 MG/0.6 ML BOTTLE PO SCH ×3 (14:00→22:06)
[2018-04-03] MEDS: KCL 10 MEQ IVPB 10 MEQ/100 ML INFUS.BAG IVPB SCH ×4 (15:14→22:08)
[2018-04-03] MEDS: D5-NS + 40 MEQ KCL - 40 MEQ/1,000 ML INFUS.BAG IV SCH (15:16)
--- NOTE | 2018-04-03 15:26 | CONSULT ---
Consult Consult Specialty:: Nephrology Reason for Consultation:: hypokalemia - History of Present Illness Chief Complaint: vomiting History of Present Illness: Pt is an 87 year old female with pmhx of CKD, COPD, bronchitis, temporal arteritis, HTN. HLD, CHF, HTN, a-fib, and dementia who presents to the ER with decreased PO intake and vomiting for about 10 days. She was recently admitted for a partial SBO. I was called to evaluate her for elevated creatinine and hypokalemia. She denies palpitations or chest pain. SHe denies shortness of breath. 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: Dementia Cardio/Vascular: Yes: AFIB, CAD, HTN, Hyperlipdemia Pulmonary: Yes: COPD Gastrointestinal: Yes: Gastritis, GERD Renal/: Yes: UTI ...: No Musculoskeletal: Yes: Chronic low back pain, Osteoarthritis, Other (compresion fx) Rheumatology: Yes: Other (ct ds) Endocrine: Yes: Other (osteoporosis) - Past Surgical History Past Surgical History: Yes: Cholecystectomy - Alcohol/Substance Use Hx Alcohol Use: No History of Substance Use: reports: None - Smoking History Smoking history: Former smoker Have you smoked in the past 12 months: No Aproximately how many cigarettes per day: 0 If you are a former smoker, when did you quit?: many years ago - Social History Usual Living Arrangement: With Significant Other ADL: Support Services History of Recent Travel: No Home Medications - Allergies Allergies/Adverse Reactions: Allergies Allergy/AdvReac Type Severity Reaction Status Date / Time codeine Allergy Intermediate Verified 03/31/18 17:18 - Home Medications Home Medications: Ambulatory Orders Alprazolam 0.25 mg PO BID 03/14/15 Atorvastatin Ca [Lipitor] 10 mg PO HS 03/14/15 Furosemide [Lasix -] 40 mg PO BID 03/14/15 Losartan Potassium 50 mg PO DAILY 03/14/15 Mesalamine [Lialda] 3.6 gm PO DAILY 03/14/15 Ranitidine [Zantac -] 150 mg PO DAILY 03/14/15 Cholecalciferol (Vitamin D3) [Vitamin D3] 1,000 unit PO DAILY 01/22/18 Cyanocobalamin (Vitamin B-12) [Vitamin B-12] 2,500 mcg SL ASDIR 01/22/18 Prednisone 5 mg PO BID #100 tablet 01/26/18 Primidone 50 mg PO DAILY 03/09/18 Family Disease History - Family Disease History Family History: Denies Review of Systems - Review of Systems Constitutional: reports: Malaise. denies: Chills, Fever Eyes: reports: No Symptoms HENT: reports: No Symptoms Neck: reports: No Symptoms Cardiovascular: reports: No Symptoms Respiratory: reports: No Symptoms Gastrointestinal: reports: Abdominal Pain, Vomiting Genitourinary: reports: No Symptoms Musculoskeletal: reports: No Symptoms Integumentary: reports: No Symptoms Neurological: reports: No Symptoms Endocrine: reports: No Symptoms Hematology/Lymphatic: reports: No Symptoms Physical Exam Vital Signs: Vital Signs Temperature 97.3 F L 04/03/18 13:58 Pulse Rate 72 04/03/18 13:58 Respiratory Rate 16 04/03/18 13:58 Blood Pressure 126/45 04/03/18 13:58 O2 Sat by Pulse Oximetry (%) 98 04/02/18 21:00 Constitutional: Yes: Calm Eyes: Yes: Conjunctiva Clear HENT: Yes: Atraumatic Cardiovascular: Yes: S1, S2 Respiratory: Yes: CTA Bilaterally Gastrointestinal: Yes: Tenderness Renal/: Yes: Benson Present Musculoskeletal: Yes: Muscle Weakness Edema: Yes Edema: LLE: Trace, RLE: Trace Neurological: Yes: Oriented Psychiatric: Yes: Oriented Labs: CBC, BMP 04/03/18 06:15 04/03/18 06:15 Laboratory Tests 03/13/18 03/14/18 03/15/18 06:00 07:48 08:41 Potassium Creatinine 1.1 H 0.8 0.6 Magnesium Urine Protein Urine Blood 03/31/18 03/31/18 03/31/18 19:20 19:20 19:30 Potassium 4.0 Creatinine 1.0 Magnesium 1.8 Urine Protein 1+ H Urine Blood Negative 04/01/18 04/03/18 06:00 06:15 Potassium 3.6 2.7 L* Creatinine 1.2 H 1.2 H Magnesium Urine Protein Urine Blood Imaging - Results Chest X-ray: Report Reviewed Problem List - Problems (1) CKD (chronic kidney disease) Code(s): N18.9 - CHRONIC KIDNEY DISEASE, UNSPECIFIED Assessment/Plan Current Medications Generic Name Dose Route Start Last Admin Trade Name Freq PRN Reason Stop Dose Admin Acetaminophen 1,000 mg 04/02/18 12:48 04/03/18 07:57 Ofirmev Injection - IVPB 1,000 mg Q6H PRN Administration PAIN OR FEVER Atorvastatin Calcium 10 mg 04/01/18 22:00 04/01/18 22:53 Lipitor - PO Not Given HS MERLE Dextrose 25 gm 04/01/18 10:53 D50w (Vial) - IVPUSH PRN PRN hypoglycemia Dextrose/Sodium Chloride 40 meq in 1,000 mls @ 75 mls/hr 04/03/18 09:15 04/03 15:16 Dextrose 5%-Normal Saline+40 Meq Kcl - IV 75 mls/hr ASDIR [facility] Administration Ertapenem 1 gm/ Sodium 50 mls @ 100 mls/hr 04/03/18 12:30 Chloride IVPB DAILY [facility] Protocol Lorazepam 0.5 mg 04/02/18 13:28 04/03/18 09:10 Ativan Injection - IVPUSH 0.5 mg BID MER[facility] Administration Losartan Potassium 50 mg 04/02/18 11:56 Cozaar - PO DAILY [facility] Ondansetron HCl 4 mg 03/31/18 22:01 04/02/18 04:25 Zofran Injection IVPUSH 4 mg Q6H PRN Administration NAUSEA Pantoprazole Sodium 40 mg 04/03/18 10:00 04/03/18 12:26 Protonix Iv IVPUSH 40 mg DAILY [facility] Administration Simethicone 80 mg 04/03/18 14:00 Mylicon Liquid - PO QID MER[facility] Thiamine HCl 200 mg 04/03/18 06:00 04/03/18 05:06 Vitamin B1 Injection - IVPB 04/05/18 23:00 200 mg TID MERLE Administration Impression 1. CKD 2. COPD 3. CHF 4. dyspnea 5. CVA 6. HLD 7. hypokalemia 8. abdominal pain Plan - replace potassium IV - monitor K levels - check mag levels - GI workup in progression - cont with potassium containing fluids - will follow Dr Lewis
[2018-04-03] MEDS ORDERED: PT OWN MED DRAWER 7, Y5N ONE (17:29)
[2018-04-03] MEDS: ERTAPENEM SODIUM 1 GM in SODIUM CHLORIDE 50 ML IVPB SCH (17:33)
--- NOTE | 2018-04-03 18:08 | CON.PSY ---
Psychiatry Consult Chief Complaint: Patient jono for Psych consult, known top me from before. Readmitted with poor intake andc poor thriving. Symptoms: reports: Depressed Mood, Anxiety - Previous Psychiatric Treatment Outpatient: None Inpatient: None - Previous Substance Abuse Treatment Outpatient: None Inpatient: None - Reason for Previous Treatment Reason for Previous Treatment: Major Depression, Anxiety or Panic Disorder - Current Medications Current Medications: Active Medications Acetaminophen (Ofirmev Injection -) 1,000 mg IVPB Q6H PRN PRN Reason: PAIN OR FEVER Last Admin: 04/03/18 07:57 Dose: 1,000 mg Atorvastatin Calcium (Lipitor -) 10 mg PO HS [facility] Last Admin: 04/01/18 22:53 Dose: Not Given Dextrose (D50w (Vial) -) 25 gm IVPUSH PRN PRN PRN Reason: hypoglycemia Dextrose/Sodium Chloride (Dextrose 5%-Normal Saline+40 Meq Kcl -) 40 meq in 1, 000 mls @ 75 mls/hr IV ASDIR [facility] Last Admin: 04/03/18 15:16 Dose: 75 mls/hr Ertapenem 1 gm/ Sodium (Chloride) 50 mls @ 100 mls/hr IVPB DAILY [facility]; Protocol Last Admin: 04/03/18 17:33 Dose: 100 mls/hr Lorazepam (Ativan Injection -) 0.5 mg IVPUSH BID [facility] Last Admin: 04/03/18 09:10 Dose: 0.5 mg Losartan Potassium (Cozaar -) 50 mg PO DAILY [facility] Ondansetron HCl (Zofran Injection) 4 mg IVPUSH Q6H PRN PRN Reason: NAUSEA Last Admin: 04/02/18 04:25 Dose: 4 mg Pantoprazole Sodium (Protonix Iv) 40 mg IVPUSH DAILY [facility] Last Admin: 04/03/18 12:26 Dose: 40 mg Simethicone (Mylicon Liquid -) 80 mg PO QID [facility] Last Admin: 04/03/18 17:17 Dose: Not Given Thiamine HCl (Vitamin B1 Injection -) 200 mg IVPB TID [facility] Stop: 04/05/18 23:00 Last Admin: 04/03/18 17:49 Dose: 200 mg - Allergies Allergies: Allergies Allergy/AdvReac Type Severity Reaction Status Date / Time codeine Allergy Intermediate Verified 03/31/18 17:18 - Current Living Status Usual Living Arrangement: Alone - Current Mental Status Evaluation Appearance: Disheveled Attitude: Guarded - Affect Affect: Constrictive Appropriateness: Not Appropriate - Mood Mood: Depressed - Speech/Language Expressive: Coherent - Psychomotor Activity Psychomotor Activity: Slowed - Thought Process Thought Process: Intact - Thought Content Hallucinations: Absent Delusions: Absent - Self Perception Self Perception: No Impairment - Cognition Attention: Alert Orientation: Time Memory, Immediate Recall: Intact Memory, Short Term: 2/3 Memory, Remote with Promptin/3 - Abstraction Proverb Interpretation: Impaired Judgement: Minimally Impaired - Insight Insight: Impaired - Impulse Control Impulse Control: Minimally Impaired - Suicidal Ideation Suicidal Ideation: No - Homicidal Ideation Homicidal Ideation: No Assessment/Plan 1) will start Remeron 15mg po hs for decreased appetite.
[2018-04-03] MEDS: MIRTAZAPINE 15 MG TABLET (FP) PO SCH (21:21)
[2018-04-04] MEDS: THIAMINE HCL 200 MG/2 ML VIAL IVPB SCH ×3 (05:39→22:25)
[2018-04-04] MEDS ORDERED: PT OWN MED DRAWER 7, Y5N ONE ×5 (06:03→22:20)
--- NOTE | 2018-04-04 09:47 | PN ---
Progress Note (short form) - Note Progress Note: 1. CKD 2. COPD 3. CHF 4. dyspnea 5. CVA 6. HLD 7. hypokalemia 8. abdominal pain Current Medications Acetaminophen (Ofirmev Injection -) 1,000 mg IVPB Q6H PRN PRN Reason: PAIN OR FEVER Last Admin: 04/03/18 22:51 Dose: 1,000 mg Atorvastatin Calcium (Lipitor -) 10 mg PO HS [facility] Last Admin: 04/01/18 22:53 Dose: Not Given Dextrose (D50w (Vial) -) 25 gm IVPUSH PRN PRN PRN Reason: hypoglycemia Dextrose/Sodium Chloride (Dextrose 5%-Normal Saline+40 Meq Kcl -) 40 meq in 1, 000 mls @ 75 mls/hr IV ASDIR [facility] Last Admin: 04/03/18 15:16 Dose: 75 mls/hr Ertapenem 1 gm/ Sodium (Chloride) 50 mls @ 100 mls/hr IVPB DAILY [facility]; Protocol Last Admin: 04/03/18 17:33 Dose: 100 mls/hr Lorazepam (Ativan Injection -) 0.5 mg IVPUSH BID [facility] Last Admin: 04/03/18 21:21 Dose: 0.5 mg Losartan Potassium (Cozaar -) 50 mg PO DAILY [facility] Mirtazapine (Remeron -) 15 mg PO HS [facility] Last Admin: 04/03/18 21:21 Dose: 15 mg Ondansetron HCl (Zofran Injection) 4 mg IVPUSH Q6H PRN PRN Reason: NAUSEA Last Admin: 04/02/18 04:25 Dose: 4 mg Pantoprazole Sodium (Protonix Iv) 40 mg IVPUSH DAILY [facility] Last Admin: 04/03/18 12:26 Dose: 40 mg Simethicone (Mylicon Liquid -) 80 mg PO QID [facility] Last Admin: 04/03/18 22:06 Dose: 80 mg Thiamine HCl (Vitamin B1 Injection -) 200 mg IVPB TID [facility] Stop: 04/05/18 23:00 Last Admin: 04/04/18 05:39 Dose: 200 mg Last Vital Signs Temp Pulse Resp BP Pulse Ox 98.2 F 93 H 16 128/73 97 04/04/18 09:34 04/04/18 09:34 04/04/18 09:34 04/04/18 09:34 04/03/18 20:34 confused uncooperative Lungs clear Heart reg Abd soft Ext mil edema both le's CBC, BMP 04/03/18 06:15 04/03/18 06:15 IMP- hypokalemia, s/p replacement of kclrepeat labs pending because of refusal to have blood drawn Plan- hydrate enteral k replacements when she is no longer npo
[2018-04-04] MEDS: PANTOPRAZOLE SODIUM 40 MG VIAL IVPUSH SCH (09:48)
[2018-04-04] MEDS: ERTAPENEM SODIUM 1 GM in SODIUM CHLORIDE 50 ML IVPB SCH (09:50)
[2018-04-04] MEDS: SIMETHICONE 40 MG/0.6 ML BOTTLE PO SCH ×5 (09:50→22:24)
[2018-04-04] MEDS: D5-NS + 40 MEQ KCL - 40 MEQ/1,000 ML INFUS.BAG IV SCH (10:04)
[2018-04-04] MEDS: LORazepam 2 MG/ML SDV VIAL IVPUSH SCH ×2 (10:05→22:24)
[2018-04-04] MEDS: POTASSIUM CHLORIDE ORAL LIQUID 20 MEQ/15 ML PO SCH ×3 (10:42→22:23)
--- NOTE | 2018-04-04 10:50 | PN ---
Progress Note (short form) - Note Progress Note: Vascular Surgery Pt seen and examined. Dressing on left leg changed. Pt has two areas of skin tears. Areas are clean, pink. STart bacitracin to area daily. Frederick vaz DO
[2018-04-04] MEDS: BACITRACIN 15 GM TUBE TOPICAL OINTMENT TP SCH (11:18)
[2018-04-04 11:59] LABS: BASO % 0.3 % (0-2.0); EOS % 2.3 % (0-4.5); HEMATOCRIT 32.6 % (32.4-45.2); HEMOGLOBIN 10.9 GM/dL (10.7-15.3); LYMPH % 7.4 % (8-40); MCH 33.7 pg (25.7-33.7); MCHC 33.5 g/dl (32.0-36.0); MEAN CELL VOLUME 100.5 fl (80-96); MEAN PLT VOLUME 10.5 fl (7.5-11.1); MONO % 11.8 % (3.8-10.2); NEUT % 78.2 % (42.8-82.8); PLATELET COUNT 196 K/MM3 (134-434); RBC 3.24 M/mm3 (3.60-5.2); RDW 18.6 % (11.6-15.6); WHITE BLOOD COUNT 6.7 K/mm3 (4.0-10.0)
[2018-04-04 12:23] LABS: ALBUMIN 2.4 g/dl (3.4-5.0); ANION GAP 14 MMOL/L (8-16); BLOOD UREA NITROGEN 15 mg/dL (7-18); CALCIUM 8.2 mg/dL (8.5-10.1); CHLORIDE 108 mmol/L (98-107); CO2 19 mmol/L (21-32); GLUCOSE,RANDOM 79 mg/dL (74-106); POTASSIUM 3.8 mmol/L (3.5-5.1); SODIUM 141 mmol/L (136-145)
[2018-04-04 12:26] LABS: ALK PHOS 106 U/L (45-117); BILIRUBIN,TOTAL 0.3 mg/dL (0.2-1.0); CREATININE 0.7 mg/dL (0.55-1.02); SGOT/AST 34 U/L (15-37); SGPT/ALT 25 U/L (12-78); TOT PROT 5.3 g/dl (6.4-8.2)
--- NOTE | 2018-04-04 12:33 | PN ---
Progress Note, Physician - Current Medication List Current Medications: Active Medications Acetaminophen (Ofirmev Injection -) 1,000 mg IVPB Q6H PRN PRN Reason: PAIN OR FEVER Last Admin: 04/03/18 22:51 Dose: 1,000 mg Atorvastatin Calcium (Lipitor -) 10 mg PO HS [facility] Last Admin: 04/01/18 22:53 Dose: Not Given Bacitracin (Bacitracin -) 1 applic TP DAILY [facility] Last Admin: 04/04/18 11:18 Dose: 1 applic Dextrose (D50w (Vial) -) 25 gm IVPUSH PRN PRN PRN Reason: hypoglycemia Dextrose/Sodium Chloride (Dextrose 5%-Normal Saline+40 Meq Kcl -) 40 meq in 1, 000 mls @ 75 mls/hr IV ASDIR [facility] Last Admin: 04/04/18 10:04 Dose: 75 mls/hr Ertapenem 1 gm/ Sodium (Chloride) 50 mls @ 100 mls/hr IVPB DAILY [facility]; Protocol Last Admin: 04/04/18 09:50 Dose: 100 mls/hr Lorazepam (Ativan Injection -) 0.5 mg IVPUSH BID [facility] Last Admin: 04/04/18 10:05 Dose: 0.5 mg Losartan Potassium (Cozaar -) 50 mg PO DAILY [facility] Mirtazapine (Remeron -) 15 mg PO HS [facility] Last Admin: 04/03/18 21:21 Dose: 15 mg Ondansetron HCl (Zofran Injection) 4 mg IVPUSH Q6H PRN PRN Reason: NAUSEA Last Admin: 04/02/18 04:25 Dose: 4 mg Pantoprazole Sodium (Protonix Iv) 40 mg IVPUSH DAILY [facility] Last Admin: 04/04/18 09:48 Dose: 40 mg Potassium Chloride (Potassium Chloride Oral Liquid) 20 meq PO BID [facility] Last Admin: 04/04/18 10:42 Dose: Not Given Simethicone (Mylicon Liquid -) 80 mg PO QID [facility] Last Admin: 04/04/18 09:50 Dose: 80 mg Thiamine HCl (Vitamin B1 Injection -) 200 mg IVPB TID [facility] Stop: 04/05/18 23:00 Last Admin: 04/04/18 05:39 Dose: 200 mg - Objective Vital Signs: Vital Signs Temperature 98.2 F 04/04/18 09:34 Pulse Rate 93 H 04/04/18 09:34 Respiratory Rate 16 04/04/18 10:00 Blood Pressure 128/73 04/04/18 09:34 O2 Sat by Pulse Oximetry (%) 97 04/04/18 10:00 Cardiovascular: Yes: S1, S2 Respiratory: Yes: Regular, CTA Bilaterally Gastrointestinal: Yes: Normal Bowel Sounds, Soft Labs: CBC, BMP 04/04/18 11:30 04/04/18 11:30 INR, PTT INR 0.96 (0.83-1.09) 03/31/18 17:30 Problem List - Problems (1) Nausea and vomiting Code(s): R11.2 - NAUSEA WITH VOMITING, UNSPECIFIED Qualifiers: Vomiting type: unspecified Vomiting Intractability: intractable Qualified Code(s): R11.2 - Nausea with vomiting, unspecified (2) Anxiety Code(s): F41.9 - ANXIETY DISORDER, UNSPECIFIED (3) CAD (coronary artery disease) Code(s): I25.10 - ATHSCL HEART DISEASE OF [place] CORONARY ARTERY W/O ANG PCTRS (4) COPD (chronic obstructive pulmonary disease) Code(s): J44.9 - CHRONIC OBSTRUCTIVE PULMONARY DISEASE, UNSPECIFIED Assessment/Plan - Problems (1) Anxiety Assessment/Plan: -Causing N/V? -unable to take po benzo -would try IV standing lorazepam Code(s): F41.9 - ANXIETY DISORDER, UNSPECIFIED (2) Nausea & vomiting Assessment/Plan: -Cause unknown -last endoscopy 5 years ago -On zofran [id number] to relieve symptoms -reglan discontinued by GI -IVF changed to D5NS+KCl 40 meq @75 cc/hr -NPO except ice chips, although swallow recommended advancing diet, unsure if pt can tolerate since she is consistently retching -change po meds to IV -Seen by Neurology -last MBS showed mildly delayed gastric emptying, cause of symptoms -Would try to explore neurological or psychological causes -HIDA- although pt had cholecystectomy, could there be stones in common bile duct? causing her symptoms? -Pt refuses Upper endoscopy -KUB shows gas, will try simethicone around the clock -Upper GI series Code(s): R11.2 - NAUSEA WITH VOMITING, UNSPECIFIED (3) Dysphagia Assessment/Plan: -seen by swallow eval -MBS recently done -Seen by Neurology - Code(s): R13.10 - DYSPHAGIA, UNSPECIFIED (4) Abnormal liver enzymes Assessment/Plan: -normal Code(s): R74.8 - ABNORMAL LEVELS OF OTHER SERUM ENZYMES (5) Hypokalemia Assessment/Plan: -change IVF to D5NS+KCl @ 75 cc/hr -KCl 10 meq x 3 -repeat labs in AM -Nephrology consult Code(s): E87.6 - HYPOKALEMIA
--- NOTE | 2018-04-04 13:43 | PN ---
GI Progress Note Subjective: GI NOte ( covering Dr. Monreal): Informed by nursing that Thais has expressed the desire to eat. This is confirmed by her daughter and grandaughter who are at the bedside. I suggested that this may be a Remeron effect. I informed them that the UGI was not an optimal study due to insufficient barium ingestion but that it suggests a possible duodenal ulcer. I advised an EGD but have adamantly refused such intervention. I told them that we will treat empirically with pantoprazole. I explained that the Hida was unrevealing and that Jade Molina found no aspiration or oropharyngeal dysphagia. Thais denies abdominal pain. I suggested trying a chopped diet but they tell me that she will reject it so I will instead order a soft diet and encouraged them to bring in her favorite food. - Objective Vital Signs: Vital Signs Temperature 98.2 F 04/04/18 09:34 Pulse Rate 93 H 04/04/18 09:34 Respiratory Rate 16 04/04/18 10:00 Blood Pressure 128/73 04/04/18 09:34 O2 Sat by Pulse Oximetry (%) 97 04/04/18 10:00 Laboratory Tests 04/04/18 04/04/18 11:30 11:30 WBC 6.7 Hgb 10.9 BUN 15 Creatinine 0.7 Albumin 2.4 L Constitutional: Calm ...Auscultate: Yes: Normoactive Bowel Sounds ...Palpate: Yes: Soft, Other (nontender) Labs: CBC, BMP 04/04/18 11:30 04/04/18 11:30 INR, PTT INR 0.96 (0.83-1.09) 03/31/18 17:30 Problem List - Problems (1) Refuses to eat Assessment/Plan: The Remeron may be stimulating Thais's appetite so will try a soft diet and supplements Code(s): R63.3 - FEEDING DIFFICULTIES (2) Hypoalbuminemia due to protein-calorie malnutrition Code(s): E46 - UNSPECIFIED PROTEIN-CALORIE MALNUTRITION (3) Duodenal ulcer Assessment/Plan: Will continue pantoprazole Code(s): K26.9 - DUODENAL ULCER, UNSP ACUTE OR CHRONIC, W/O HEMOR OR PERF
[2018-04-04 14:25] LABS: ANISOCYTOSIS 2+; MACROCYTOSIS 1+; PLATELET ESTIMATE NORMAL
[2018-04-04] MEDS: ACETAMINOPHEN 1000 MG/100 ML VIAL (NON FORMULARY) IVPB PRN (15:53)
[2018-04-04] MEDS: MIRTAZAPINE 15 MG TABLET (FP) PO SCH (22:23)
[2018-04-04] MEDS: PANTOPRAZOLE 40 MG TABLET (FP) PO SCH (22:23)
[2018-04-04] MEDS: HEPARIN NA (PORCINE) 5,000 UNITS/ML 1ML VIAL SQ SCH (22:24)
[2018-04-05] MEDS: ACETAMINOPHEN 1000 MG/100 ML VIAL (NON FORMULARY) IVPB PRN (04:10)
[2018-04-05] MEDS: THIAMINE HCL 200 MG/2 ML VIAL IVPB SCH ×3 (06:17→21:23)
[2018-04-05 07:50] LABS: BASO % 0.7 % (0-2.0); EOS % 3.1 % (0-4.5); HEMATOCRIT 28.5 % (32.4-45.2); HEMOGLOBIN 9.3 GM/dL (10.7-15.3); LYMPH % 10.1 % (8-40); MCH 32.8 pg (25.7-33.7); MCHC 32.5 g/dl (32.0-36.0); MEAN CELL VOLUME 100.7 fl (80-96); MEAN PLT VOLUME 10.6 fl (7.5-11.1); MONO % 12.9 % (3.8-10.2); NEUT % 73.2 % (42.8-82.8); PLATELET COUNT 164 K/MM3 (134-434); RBC 2.83 M/mm3 (3.60-5.2); RDW 18.2 % (11.6-15.6); WHITE BLOOD COUNT 5.4 K/mm3 (4.0-10.0)
[2018-04-05 08:54] LABS: ALBUMIN 1.9 g/dl (3.4-5.0); ANION GAP 10 MMOL/L (8-16); BLOOD UREA NITROGEN 10 mg/dL (7-18); CALCIUM 7.7 mg/dL (8.5-10.1); CHLORIDE 115 mmol/L (98-107); CO2 19 mmol/L (21-32); GLUCOSE,RANDOM 73 mg/dL (74-106); POTASSIUM 4.4 mmol/L (3.5-5.1); SODIUM 144 mmol/L (136-145)
[2018-04-05 08:57] LABS: ALK PHOS 84 U/L (45-117); BILIRUBIN,TOTAL 0.3 mg/dL (0.2-1.0); CREATININE 0.5 mg/dL (0.55-1.02); SGOT/AST 26 U/L (15-37); SGPT/ALT 21 U/L (12-78); TOT PROT 4.3 g/dl (6.4-8.2)
[2018-04-05] MEDS ORDERED: PT OWN MED DRAWER 7, Y5N ONE ×4 (10:52→21:18)
[2018-04-05 10:55] LABS: ANISOCYTOSIS 1+; MACROCYTOSIS 1+; PLATELET ESTIMATE NORMAL
[2018-04-05] MEDS: PANTOPRAZOLE 40 MG TABLET (FP) PO SCH ×3 (11:02→21:21)
[2018-04-05] MEDS: POTASSIUM CHLORIDE ORAL LIQUID 20 MEQ/15 ML PO SCH ×3 (11:02→21:16)
[2018-04-05] MEDS: HEPARIN NA (PORCINE) 5,000 UNITS/ML 1ML VIAL SQ SCH ×2 (11:03→21:23)
[2018-04-05] MEDS: BACITRACIN 15 GM TUBE TOPICAL OINTMENT TP SCH (11:03)
[2018-04-05] MEDS: SIMETHICONE 40 MG/0.6 ML BOTTLE PO SCH ×5 (11:04→23:22)
[2018-04-05] MEDS: LORazepam 2 MG/ML SDV VIAL IVPUSH SCH ×2 (11:04→23:00)
[2018-04-05] MEDS: ERTAPENEM SODIUM 1 GM in SODIUM CHLORIDE 50 ML IVPB SCH (11:10)
--- NOTE | 2018-04-05 14:58 | PN ---
Progress Note, Physician - Current Medication List Current Medications: Active Medications Atorvastatin Calcium (Lipitor -) 10 mg PO HS [facility] Last Admin: 04/01/18 22:53 Dose: Not Given Bacitracin (Bacitracin -) 1 applic TP DAILY [facility] Last Admin: 04/05/18 11:03 Dose: 1 applic Dextrose (D50w (Vial) -) 25 gm IVPUSH PRN PRN PRN Reason: hypoglycemia Heparin Sodium (Porcine) (Heparin -) 5,000 unit SQ BID [facility] Last Admin: 04/05/18 11:03 Dose: 5,000 unit Ertapenem 1 gm/ Sodium (Chloride) 50 mls @ 100 mls/hr IVPB DAILY [facility]; Protocol Last Admin: 04/05/18 11:10 Dose: 100 mls/hr Lorazepam (Ativan Injection -) 1 mg IVPUSH BID [facility] Last Admin: 04/05/18 11:04 Dose: Not Given Losartan Potassium (Cozaar -) 50 mg PO DAILY [facility] Mirtazapine (Remeron -) 15 mg PO HS [facility] Last Admin: 04/04/18 22:23 Dose: 15 mg Ondansetron HCl (Zofran Injection) 4 mg IVPUSH Q6H PRN PRN Reason: NAUSEA Last Admin: 04/02/18 04:25 Dose: 4 mg Pantoprazole Sodium (Protonix -) 40 mg PO BID [facility] Last Admin: 04/05/18 11:05 Dose: Not Given Potassium Chloride (Potassium Chloride Oral Liquid) 20 meq PO BID [facility] Last Admin: 04/05/18 11:25 Dose: Not Given Simethicone (Mylicon Liquid -) 80 mg PO QID [facility] Last Admin: 04/05/18 11:05 Dose: Not Given Thiamine HCl (Vitamin B1 Injection -) 200 mg IVPB TID [facility] Stop: 04/05/18 23:00 Last Admin: 04/05/18 06:17 Dose: 200 mg - Objective Vital Signs: Vital Signs Temperature 98.1 F 04/05/18 10:00 Pulse Rate 88 04/05/18 10:00 Respiratory Rate 20 04/05/18 10:00 Blood Pressure 60/60 04/05/18 10:00 O2 Sat by Pulse Oximetry (%) 97 04/05/18 09:00 Cardiovascular: Yes: S1, S2 Respiratory: Yes: Regular, CTA Bilaterally Gastrointestinal: Yes: Normal Bowel Sounds, Soft Neurological: Yes: Weakness Labs: CBC, BMP 04/05/18 06:45 04/05/18 06:45 INR, PTT INR 0.96 (0.83-1.09) 03/31/18 17:30 Problem List - Problems (1) Nausea and vomiting Code(s): R11.2 - NAUSEA WITH VOMITING, UNSPECIFIED Qualifiers: Vomiting type: unspecified Vomiting Intractability: intractable Qualified Code(s): R11.2 - Nausea with vomiting, unspecified (2) Anxiety Code(s): F41.9 - ANXIETY DISORDER, UNSPECIFIED (3) CAD (coronary artery disease) Code(s): I25.10 - ATHSCL HEART DISEASE OF [place] CORONARY ARTERY W/O ANG PCTRS (4) COPD (chronic obstructive pulmonary disease) Code(s): J44.9 - CHRONIC OBSTRUCTIVE PULMONARY DISEASE, UNSPECIFIED Assessment/Plan - Problems (1) Anxiety Assessment/Plan: -Causing N/V? -unable to take po benzo -would try IV standing lorazepam Code(s): F41.9 - ANXIETY DISORDER, UNSPECIFIED (2) Nausea & vomiting Assessment/Plan: -Cause unknown -last endoscopy 5 years ago -On zofran [id number] to relieve symptoms -reglan discontinued by GI -Seen by Neurology -last MBS showed mildly delayed gastric emptying, cause of symptoms -HIDA- although pt had cholecystectomy, could there be stones in common bile duct? causing her symptoms? -Pt refuses Upper endoscopy -Upper GI series--DU--ON PPI Code(s): R11.2 - NAUSEA WITH VOMITING, UNSPECIFIED (3) Dysphagia Assessment/Plan: -seen by swallow eval -MBS recently done -Seen by Neurology - Code(s): R13.10 - DYSPHAGIA, UNSPECIFIED (4) Abnormal liver enzymes Assessment/Plan: -normal Code(s): R74.8 - ABNORMAL LEVELS OF OTHER SERUM ENZYMES PT WANT COMFORT CARE WILL CONSULT PALLIATIVE CARE TEAM
--- NOTE | 2018-04-05 15:40 | PN ---
Progress Note (short form) - Note Progress Note: 1. CKD 2. COPD 3. CHF 4. dyspnea 5. CVA 6. HLD 7. hypokalemia 8. abdominal pain Current Medications Atorvastatin Calcium (Lipitor -) 10 mg PO HS [facility] Last Admin: 04/01/18 22:53 Dose: Not Given Bacitracin (Bacitracin -) 1 applic TP DAILY [facility] Last Admin: 04/05/18 11:03 Dose: 1 applic Dextrose (D50w (Vial) -) 25 gm IVPUSH PRN PRN PRN Reason: hypoglycemia Heparin Sodium (Porcine) (Heparin -) 5,000 unit SQ BID [facility] Last Admin: 04/05/18 11:03 Dose: 5,000 unit Ertapenem 1 gm/ Sodium (Chloride) 50 mls @ 100 mls/hr IVPB DAILY [facility]; Protocol Last Admin: 04/05/18 11:10 Dose: 100 mls/hr Lorazepam (Ativan Injection -) 1 mg IVPUSH BID [facility] Last Admin: 04/05/18 11:04 Dose: Not Given Losartan Potassium (Cozaar -) 50 mg PO DAILY [facility] Mirtazapine (Remeron -) 15 mg PO HS [facility] Last Admin: 04/04/18 22:23 Dose: 15 mg Ondansetron HCl (Zofran Injection) 4 mg IVPUSH Q6H PRN PRN Reason: NAUSEA Last Admin: 04/02/18 04:25 Dose: 4 mg Pantoprazole Sodium (Protonix -) 40 mg PO BID [facility] Last Admin: 04/05/18 11:05 Dose: Not Given Potassium Chloride (Potassium Chloride Oral Liquid) 20 meq PO BID [facility] Last Admin: 04/05/18 11:25 Dose: Not Given Simethicone (Mylicon Liquid -) 80 mg PO QID [facility] Last Admin: 04/05/18 11:05 Dose: Not Given Thiamine HCl (Vitamin B1 Injection -) 200 mg IVPB TID [facility] Stop: 04/05/18 23:00 Last Admin: 04/05/18 06:17 Dose: 200 mg Last Vital Signs Temp Pulse Resp BP Pulse Ox 98.1 F 88 20 60/60 97 04/05/18 10:00 04/05/18 10:00 04/05/18 10:00 04/05/18 10:00 04/05/18 09:00 confused uncooperative Lungs clear Heart reg Abd soft Ext mil edema both le's CBC, BMP 04/05/18 06:45 04/05/18 06:45 CBC, BMP 04/03/18 06:15 04/03/18 06:15 IMP- hypokalemia, s/p replacement of kcl, resolved Plan- hydrate enteral k replacements when she is no longer npo
[2018-04-05] MEDS: D5-1/2NS+20 MEQ KCL - 20 MEQ/1,000 ML INFUS.BAG IV SCH (19:00)
[2018-04-05] MEDS ORDERED: ACETAMINOPHEN 325 MG TABLET (FP) PO ONE (19:31)
[2018-04-05] MEDS ORDERED: ACETAMINOPHEN 1000 MG/100 ML VIAL (NON FORMULARY) IVPB ONE (19:36)
[2018-04-05] MEDS: MIRTAZAPINE 15 MG TABLET (FP) PO SCH (21:21)
[2018-04-06] MEDS: D5-1/2NS+20 MEQ KCL - 20 MEQ/1,000 ML INFUS.BAG IV SCH (06:39)
[2018-04-06 09:03] LABS: ALBUMIN 1.9 g/dl (3.4-5.0); ANION GAP 9 MMOL/L (8-16); BILIRUBIN,TOTAL 0.3 mg/dL (0.2-1.0); BLOOD UREA NITROGEN 6 mg/dL (7-18); CALCIUM 7.5 mg/dL (8.5-10.1); CHLORIDE 113 mmol/L (98-107); CO2 21 mmol/L (21-32); CREATININE 0.5 mg/dL (0.55-1.02); GLUCOSE,RANDOM 78 mg/dL (74-106); POTASSIUM 4.5 mmol/L (3.5-5.1); SGOT/AST 29 U/L (15-37); SGPT/ALT 21 U/L (12-78); SODIUM 143 mmol/L (136-145); TOT PROT 4.5 g/dl (6.4-8.2)
[2018-04-06 09:04] LABS: ALK PHOS 99 U/L (45-117)
[2018-04-06 09:19] LABS: BASO % 0.3 % (0-2.0); EOS % 4.7 % (0-4.5); HEMATOCRIT 29.6 % (32.4-45.2); HEMOGLOBIN 9.5 GM/dL (10.7-15.3); LYMPH % 18.9 % (8-40); MCH 32.4 pg (25.7-33.7); MEAN CELL VOLUME 101.2 fl (80-96); MEAN PLT VOLUME 10.5 fl (7.5-11.1); NEUT % 64.1 % (42.8-82.8); PLATELET COUNT 191 K/MM3 (134-434); RBC 2.92 M/mm3 (3.60-5.2); RDW 18.6 % (11.6-15.6); WHITE BLOOD COUNT 5.8 K/mm3 (4.0-10.0)
[2018-04-06] MEDS: LORazepam 2 MG/ML SDV VIAL IVPUSH SCH ×2 (10:30→22:24)
--- NOTE | 2018-04-06 10:47 | PN ---
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
[2018-04-06] MEDS ORDERED: PT OWN MED DRAWER 7, Y5N ONE (11:13)
[2018-04-06] MEDS: POTASSIUM CHLORIDE ORAL LIQUID 20 MEQ/15 ML PO SCH ×2 (11:20→22:25)
[2018-04-06] MEDS: SIMETHICONE 40 MG/0.6 ML BOTTLE PO SCH ×4 (11:20→22:24)
[2018-04-06] MEDS: ERTAPENEM SODIUM 1 GM in SODIUM CHLORIDE 50 ML IVPB SCH (11:21)
[2018-04-06] MEDS: HEPARIN NA (PORCINE) 5,000 UNITS/ML 1ML VIAL SQ SCH ×2 (11:21→22:24)
[2018-04-06] MEDS: BACITRACIN 15 GM TUBE TOPICAL OINTMENT TP SCH (11:21)
[2018-04-06] MEDS: PANTOPRAZOLE 40 MG TABLET (FP) PO SCH ×2 (11:22→22:25)
[2018-04-06 12:34] LABS: ANISOCYTOSIS 2+; MACROCYTOSIS 0; PLATELET ESTIMATE NORMAL
--- NOTE | 2018-04-06 13:36 | PN ---
Progress Note, Physician History of Present Illness: Pt seen and examined at bedside. She is awake and alert. She is refusing to eat. - Current Medication List Current Medications: Active Medications Atorvastatin Calcium (Lipitor -) 10 mg PO HS [facility] Last Admin: 04/01/18 22:53 Dose: Not Given Bacitracin (Bacitracin -) 1 applic TP DAILY [facility] Last Admin: 04/06/18 11:21 Dose: 1 applic Dextrose (D50w (Vial) -) 25 gm IVPUSH PRN PRN PRN Reason: hypoglycemia Heparin Sodium (Porcine) (Heparin -) 5,000 unit SQ BID [facility] Last Admin: 04/06/18 11:21 Dose: 5,000 unit Ertapenem 1 gm/ Sodium (Chloride) 50 mls @ 100 mls/hr IVPB DAILY [facility]; Protocol Last Admin: 04/06/18 11:21 Dose: 100 mls/hr Potassium Chloride/Dextrose/Sod Cl (D5-1/2ns+20 Meq Kcl -) 20 meq in 1,000 mls @ 75 mls/hr IV ASDIR [facility] Last Admin: 04/06/18 06:39 Dose: 75 mls/hr Lorazepam (Ativan Injection -) 1 mg IVPUSH BID [facility] Last Admin: 04/06/18 10:30 Dose: Not Given Losartan Potassium (Cozaar -) 50 mg PO DAILY [facility] Mirtazapine (Remeron -) 15 mg PO HS [facility] Last Admin: 04/05/18 21:21 Dose: 15 mg Ondansetron HCl (Zofran Injection) 4 mg IVPUSH Q6H PRN PRN Reason: NAUSEA Last Admin: 04/02/18 04:25 Dose: 4 mg Pantoprazole Sodium (Protonix -) 40 mg PO BID [facility] Last Admin: 04/06/18 11:22 Dose: Not Given Potassium Chloride (Potassium Chloride Oral Liquid) 20 meq PO BID [facility] Last Admin: 04/06/18 11:20 Dose: Not Given Simethicone (Mylicon Liquid -) 80 mg PO QID [facility] Last Admin: 04/06/18 13:31 Dose: Not Given - Objective Vital Signs: Vital Signs Temperature 99.0 F 04/06/18 06:00 Pulse Rate 93 H 04/06/18 06:00 Respiratory Rate 20 04/05/18 21:00 Blood Pressure 152/74 04/06/18 06:00 O2 Sat by Pulse Oximetry (%) 96 04/05/18 21:00 Constitutional: Yes: Calm Eyes: Yes: Conjunctiva Clear HENT: Yes: Atraumatic Cardiovascular: Yes: S1, S2 Respiratory: Yes: On Nasal O2 Gastrointestinal: Yes: Soft Genitourinary: Yes: Benson Present Musculoskeletal: Yes: Muscle Weakness Edema: Yes Edema: LLE: Trace, RLE: Trace Integumentary: Yes: Venous Stasis Changes Neurological: Yes: Oriented Psychiatric: Yes: Oriented Labs: CBC, BMP 04/06/18 07:12 04/06/18 07:12 INR, PTT INR 0.96 (0.83-1.09) 03/31/18 17:30 Problem List - Problems (1) CKD (chronic kidney disease) Code(s): N18.9 - CHRONIC KIDNEY DISEASE, UNSPECIFIED Assessment/Plan Current Medications Generic Name Dose Route Start Last Admin Trade Name Freq PRN Reason Stop Dose Admin Atorvastatin Calcium 10 mg 04/01/18 22:00 04/01/18 22:53 Lipitor - PO Not Given HS [facility] Bacitracin 1 applic 04/04/18 11:00 04/06/18 11:21 Bacitracin - TP 1 applic DAILY [facility] Administration Dextrose 25 gm 04/01/18 10:53 D50w (Vial) - IVPUSH PRN PRN hypoglycemia Heparin Sodium (Porcine) 5,000 unit 04/04/18 22:00 04/06/18 11:21 Heparin - SQ 5,000 unit BID [facility] Administration Ertapenem 1 gm/ Sodium 50 mls @ 100 mls/hr 04/03/18 12:30 04/06/18 11:21 Chloride IVPB 100 mls/hr DAILY [facility] Administration Protocol Potassium Chloride/Dextrose/Sod Cl 20 meq in 1,000 mls @ 75 mls/hr 04/05/18 18 :00 04/06/18 06:39 D5-1/2ns+20 Meq Kcl - IV 75 mls/hr ASDIR [facility] Administration Lorazepam 1 mg 04/04/18 12:34 04/06/18 10:30 Ativan Injection - IVPUSH Not Given BID [facility] Losartan Potassium 50 mg 04/02/18 11:56 Cozaar - PO DAILY [facility] Mirtazapine 15 mg 04/03/18 22:00 04/05/18 21:21 Remeron - PO 15 mg HS [facility] Administration Ondansetron HCl 4 mg 03/31/18 22:01 04/02/18 04:25 Zofran Injection IVPUSH 4 mg Q6H PRN Administration NAUSEA Pantoprazole Sodium 40 mg 04/04/18 22:00 04/06/18 11:22 Protonix - PO Not Given BID [facility] Potassium Chloride 20 meq 04/04/18 10:00 04/06/18 11:20 Potassium Chloride Oral Liquid PO Not Given BID [facility] Simethicone 80 mg 04/03/18 14:00 04/06/18 13:31 Mylicon Liquid - PO Not Given QID [facility] Impression 1. CKD 2. COPD 3. CHF 4. dyspnea 5. CVA 6. HLD 7. hypokalemia 8. abdominal pain 9. malnutrition Plan - potassium stable - encourage PO intake - discussed with family - check mag level as well - will follow Dr Lewis
--- NOTE | 2018-04-06 18:46 | PN ---
Progress Note, Physician Chief Complaint: Nausea/vomiting History of Present Illness: extremely lethargic has been refusing meds and to eat - Current Medication List Current Medications: Active Medications Atorvastatin Calcium (Lipitor -) 10 mg PO HS [facility] Last Admin: 04/01/18 22:53 Dose: Not Given Bacitracin (Bacitracin -) 1 applic TP DAILY [facility] Last Admin: 04/06/18 11:21 Dose: 1 applic Dextrose (D50w (Vial) -) 25 gm IVPUSH PRN PRN PRN Reason: hypoglycemia Heparin Sodium (Porcine) (Heparin -) 5,000 unit SQ BID [facility] Last Admin: 04/06/18 11:21 Dose: 5,000 unit Ertapenem 1 gm/ Sodium (Chloride) 50 mls @ 100 mls/hr IVPB DAILY [facility]; Protocol Last Admin: 04/06/18 11:21 Dose: 100 mls/hr Potassium Chloride/Dextrose/Sod Cl (D5-1/2ns+20 Meq Kcl -) 20 meq in 1,000 mls @ 75 mls/hr IV ASDIR [facility] Last Admin: 04/06/18 06:39 Dose: 75 mls/hr Lorazepam (Ativan Injection -) 1 mg IVPUSH BID [facility] Last Admin: 04/06/18 10:30 Dose: Not Given Losartan Potassium (Cozaar -) 50 mg PO DAILY [facility] Mirtazapine (Remeron -) 15 mg PO HS [facility] Last Admin: 04/05/18 21:21 Dose: 15 mg Ondansetron HCl (Zofran Injection) 4 mg IVPUSH Q6H PRN PRN Reason: NAUSEA Last Admin: 04/02/18 04:25 Dose: 4 mg Pantoprazole Sodium (Protonix -) 40 mg PO BID [facility] Last Admin: 04/06/18 11:22 Dose: Not Given Potassium Chloride (Potassium Chloride Oral Liquid) 20 meq PO BID [facility] Last Admin: 04/06/18 11:20 Dose: Not Given Simethicone (Mylicon Liquid -) 80 mg PO QID [facility] Last Admin: 04/06/18 17:25 Dose: Not Given - Objective Vital Signs: Vital Signs Temperature 98.9 F 04/06/18 15:42 Pulse Rate 94 H 04/06/18 15:42 Respiratory Rate 18 04/06/18 15:42 Blood Pressure 154/69 04/06/18 15:42 O2 Sat by Pulse Oximetry (%) 96 04/05/18 21:00 Constitutional: Yes: Well Nourished, No Distress, Calm Cardiovascular: Yes: Regular Rate and Rhythm Respiratory: Yes: Regular Musculoskeletal: Yes: WNL Extremities: Yes: WNL Edema: No Neurological: Yes: Alert, Lethargy, Pre-Existing Deficit Psychiatric: Yes: Alert Labs: CBC, BMP 04/06/18 07:12 04/06/18 07:12 INR, PTT INR 0.96 (0.83-1.09) 03/31/18 17:30 Problem List - Problems (1) Anxiety Assessment/Plan: -Causing N/V? -unable to take po benzo -lorazepam IV BID PRN Code(s): F41.9 - ANXIETY DISORDER, UNSPECIFIED (2) Nausea & vomiting Assessment/Plan: -Cause unknown -last endoscopy 5 years ago -On zofran [id number] to relieve symptoms -IVF D5NS+KCl 40 meq @75 cc/hr -Seen by Neurology -last MBS showed mildly delayed gastric emptying, cause of symptoms -KUB shows gas,simethicone around the clock -Upper GI series- post bulber ulcer Code(s): R11.2 - NAUSEA WITH VOMITING, UNSPECIFIED (3) Dysphagia Assessment/Plan: -seen by swallow eval -MBS recently done -Seen by Neurology -Seen by psychiatry Code(s): R13.10 - DYSPHAGIA, UNSPECIFIED (4) Abnormal liver enzymes Assessment/Plan: -normal Code(s): R74.8 - ABNORMAL LEVELS OF OTHER SERUM ENZYMES (5) Hypokalemia Assessment/Plan: resolved -IVF to D5NS+KCl @ 75 cc/hr -Nephrology consult Code(s): E87.6 - HYPOKALEMIA (6) UTI (urinary tract infection) Assessment/Plan: -esbl in urine -On IV ertepenem Code(s): N39.0 - URINARY TRACT INFECTION, SITE NOT SPECIFIED Assessment/Plan see problem list
[2018-04-06] MEDS: MIRTAZAPINE 15 MG TABLET (FP) PO SCH (22:25)
--- NOTE | 2018-04-07 08:30 | PN ---
GI Progress Note Subjective: Ms. Atkinson found sleeping. She states that she is cold and wants to sleep Refusing to take meds or eat per nursing - Objective Vital Signs: Vital Signs Temperature 98.2 F 04/07/18 06:00 Pulse Rate 94 H 04/07/18 06:00 Respiratory Rate 20 04/07/18 06:00 Blood Pressure 124/79 04/07/18 06:00 O2 Sat by Pulse Oximetry (%) 96 04/06/18 22:00 Constitutional: Calm Eyes: No: Sclera Icterus Cardiovascular: Yes: Regular Rate and Rhythm Respiratory: Yes: Wheezes (mild expiratory wheezing) Gastrointestinal Inspection: Yes: Scars. No: Distention ...Auscultate: Yes: Normoactive Bowel Sounds ...Palpate: No: Tenderness ...Percussion: No: Tympanitic Labs: INR, PTT INR 0.96 (0.83-1.09) 03/31/18 17:30 - ....Imaging X-ray: Report Reviewed (UGIS: limited exam, no obvious obstruction in the esophagus/stomch. question of post duodenal bulb ulcer) Problem List - Problems (1) History of food intolerance Assessment/Plan: Still refusing to eat and take meds. There is question of a small post bulbar ulcer on UGIS however patient refuses endoscopy and from previous discussion family opting for conservative measures as well . Continue protonix 40mg once daily Question goals of care at this poin. hospice? Code(s): Z87.19 - PERSONAL HISTORY OF OTHER DISEASES OF THE DIGESTIVE SYSTEM
[2018-04-07 08:45] LABS: BASO % 0.3 % (0-2.0); EOS % 3.7 % (0-4.5); HEMATOCRIT 35.8 % (32.4-45.2); HEMOGLOBIN 11.4 GM/dL (10.7-15.3); LYMPH % 17.4 % (8-40); MCH 32.6 pg (25.7-33.7); MCHC 31.9 g/dl (32.0-36.0); MEAN CELL VOLUME 102.2 fl (80-96); MEAN PLT VOLUME 9.8 fl (7.5-11.1); MONO % 13.1 % (3.8-10.2); NEUT % 65.5 % (42.8-82.8); PLATELET COUNT 218 K/MM3 (134-434); RDW 19.1 % (11.6-15.6); WHITE BLOOD COUNT 6.2 K/mm3 (4.0-10.0)
[2018-04-07 09:07] LABS: ALBUMIN 2.2 g/dl (3.4-5.0); ANION GAP 9 MMOL/L (8-16); BLOOD UREA NITROGEN 5 mg/dL (7-18); CALCIUM 8.3 mg/dL (8.5-10.1); CHLORIDE 113 mmol/L (98-107); CO2 22 mmol/L (21-32); CREATININE 0.5 mg/dL (0.55-1.02); GLUCOSE,RANDOM 83 mg/dL (74-106); MAGNESIUM 1.3 mg/dL (1.8-2.4); POTASSIUM 4.5 mmol/L (3.5-5.1); SGOT/AST 25 U/L (15-37); SGPT/ALT 20 U/L (12-78); SODIUM 144 mmol/L (136-145)
[2018-04-07 09:09] LABS: ALK PHOS 113 U/L (45-117); BILIRUBIN,TOTAL 0.4 mg/dL (0.2-1.0)
[2018-04-07] MEDS: ERTAPENEM SODIUM 1 GM in SODIUM CHLORIDE 50 ML IVPB SCH (10:11)
[2018-04-07] MEDS: LORazepam 2 MG/ML SDV VIAL IVPUSH SCH (10:11)
[2018-04-07] MEDS: BACITRACIN 15 GM TUBE TOPICAL OINTMENT TP SCH (10:15)
[2018-04-07] MEDS: HEPARIN NA (PORCINE) 5,000 UNITS/ML 1ML VIAL SQ SCH ×2 (10:42→21:31)
[2018-04-07] MEDS: SIMETHICONE 40 MG/0.6 ML BOTTLE PO SCH ×4 (10:43→21:32)
[2018-04-07] MEDS: PANTOPRAZOLE 40 MG TABLET (FP) PO SCH ×2 (10:43→21:32)
[2018-04-07] MEDS: POTASSIUM CHLORIDE ORAL LIQUID 20 MEQ/15 ML PO SCH ×2 (10:43→21:32)
--- NOTE | 2018-04-07 11:35 | PN ---
Progress Note, Physician Chief Complaint: Nausea/vomiting History of Present Illness: extremely lethargic has been refusing meds and to eat - Current Medication List Current Medications: Active Medications Atorvastatin Calcium (Lipitor -) 10 mg PO HS [facility] Last Admin: 04/01/18 22:53 Dose: Not Given Bacitracin (Bacitracin -) 1 applic TP DAILY [facility] Last Admin: 04/07/18 10:15 Dose: 1 applic Dextrose (D50w (Vial) -) 25 gm IVPUSH PRN PRN PRN Reason: hypoglycemia Heparin Sodium (Porcine) (Heparin -) 5,000 unit SQ BID [facility] Last Admin: 04/07/18 10:42 Dose: 5,000 unit Ertapenem 1 gm/ Sodium (Chloride) 50 mls @ 100 mls/hr IVPB DAILY [facility]; Protocol Last Admin: 04/07/18 10:11 Dose: 100 mls/hr Potassium Chloride/Dextrose/Sod Cl (D5-1/2ns+20 Meq Kcl -) 20 meq in 1,000 mls @ 75 mls/hr IV ASDIR [facility] Last Admin: 04/06/18 06:39 Dose: 75 mls/hr Lorazepam (Ativan Injection -) 1 mg IVPUSH BID [facility] Last Admin: 04/07/18 10:11 Dose: 1 mg Losartan Potassium (Cozaar -) 50 mg PO DAILY [facility] Mirtazapine (Remeron -) 15 mg PO HS [facility] Last Admin: 04/06/18 22:25 Dose: Not Given Ondansetron HCl (Zofran Injection) 4 mg IVPUSH Q6H PRN PRN Reason: NAUSEA Last Admin: 04/02/18 04:25 Dose: 4 mg Pantoprazole Sodium (Protonix -) 40 mg PO BID [facility] Last Admin: 04/07/18 10:43 Dose: Not Given Potassium Chloride (Potassium Chloride Oral Liquid) 20 meq PO BID [facility] Last Admin: 04/07/18 10:43 Dose: Not Given Simethicone (Mylicon Liquid -) 80 mg PO QID [facility] Last Admin: 04/07/18 10:43 Dose: Not Given - Objective Vital Signs: Vital Signs Temperature 98.3 F 04/07/18 10:00 Pulse Rate 96 H 04/07/18 10:00 Respiratory Rate 20 04/07/18 10:00 Blood Pressure 126/80 04/07/18 10:00 O2 Sat by Pulse Oximetry (%) 96 04/06/18 22:00 Constitutional: Yes: Well Nourished, No Distress, Calm Cardiovascular: Yes: Regular Rate and Rhythm Respiratory: Yes: Regular Gastrointestinal: Yes: Normal Bowel Sounds, Soft Musculoskeletal: Yes: Muscle Weakness Neurological: Yes: Alert, Lethargy, Pre-Existing Deficit Psychiatric: Yes: Alert Labs: CBC, BMP 04/07/18 07:30 04/07/18 07:30 INR, PTT INR 0.96 (0.83-1.09) 03/31/18 17:30 Problem List - Problems (1) Anxiety Assessment/Plan: -Causing N/V? -unable to take po benzo -lorazepam IV BID PRN Code(s): F41.9 - ANXIETY DISORDER, UNSPECIFIED (2) Nausea & vomiting Assessment/Plan: -Cause unknown -last endoscopy 5 years ago -On zofran [id number] to relieve symptoms -IVF D5NS+KCl 40 meq @75 cc/hr -Seen by Neurology -last MBS showed mildly delayed gastric emptying, cause of symptoms -KUB shows gas,simethicone around the clock -Upper GI series- post bulber ulcer Code(s): R11.2 - NAUSEA WITH VOMITING, UNSPECIFIED (3) Dysphagia Assessment/Plan: -seen by swallow eval -MBS recently done -Seen by Neurology -Seen by psychiatry Code(s): R13.10 - DYSPHAGIA, UNSPECIFIED (4) Abnormal liver enzymes Assessment/Plan: -normal Code(s): R74.8 - ABNORMAL LEVELS OF OTHER SERUM ENZYMES (5) Hypokalemia Assessment/Plan: resolved -IVF to D5NS+KCl @ 75 cc/hr -Nephrology consult Code(s): E87.6 - HYPOKALEMIA (6) UTI (urinary tract infection) Assessment/Plan: -esbl in urine -On IV ertepenem Code(s): N39.0 - URINARY TRACT INFECTION, SITE NOT SPECIFIED Assessment/Plan see problem list
[2018-04-07] MEDS: D5-1/2NS+20 MEQ KCL - 20 MEQ/1,000 ML INFUS.BAG IV SCH (11:50)
[2018-04-07] MEDS ORDERED: MAGNESIUM SULF 50% (8.12 MEQ/2 ML-1 GM VIAL) IVPB ONE (11:58)
--- NOTE | 2018-04-07 11:58 | PN ---
Progress Note, Physician History of Present Illness: Pt seen and examined at bedside. She is refusing to eat. She denies shortness of breath. - Current Medication List Current Medications: Active Medications Acetaminophen (Ofirmev Injection -) 1,000 mg IVPB Q6H PRN PRN Reason: PAIN OR FEVER Atorvastatin Calcium (Lipitor -) 10 mg PO HS [facility] Last Admin: 04/01/18 22:53 Dose: Not Given Bacitracin (Bacitracin -) 1 applic TP DAILY [facility] Last Admin: 04/07/18 10:15 Dose: 1 applic Dextrose (D50w (Vial) -) 25 gm IVPUSH PRN PRN PRN Reason: hypoglycemia Heparin Sodium (Porcine) (Heparin -) 5,000 unit SQ BID [facility] Last Admin: 04/07/18 10:42 Dose: 5,000 unit Ertapenem 1 gm/ Sodium (Chloride) 50 mls @ 100 mls/hr IVPB DAILY [facility]; Protocol Last Admin: 04/07/18 10:11 Dose: 100 mls/hr Potassium Chloride/Dextrose/Sod Cl (D5-1/2ns+20 Meq Kcl -) 20 meq in 1,000 mls @ 75 mls/hr IV ASDIR [facility] Last Admin: 04/07/18 11:50 Dose: 75 mls/hr Lorazepam (Ativan Injection -) 1 mg IVPUSH BID PRN PRN Reason: ANXIETY Losartan Potassium (Cozaar -) 50 mg PO DAILY [facility] Mirtazapine (Remeron -) 15 mg PO HS [facility] Last Admin: 04/06/18 22:25 Dose: Not Given Ondansetron HCl (Zofran Injection) 4 mg IVPUSH Q6H PRN PRN Reason: NAUSEA Last Admin: 04/02/18 04:25 Dose: 4 mg Pantoprazole Sodium (Protonix -) 40 mg PO BID [facility] Last Admin: 04/07/18 10:43 Dose: Not Given Potassium Chloride (Potassium Chloride Oral Liquid) 20 meq PO BID [facility] Last Admin: 04/07/18 10:43 Dose: Not Given Simethicone (Mylicon Liquid -) 80 mg PO QID [facility] Last Admin: 04/07/18 10:43 Dose: Not Given - Objective Vital Signs: Vital Signs Temperature 98.3 F 04/07/18 10:00 Pulse Rate 96 H 04/07/18 10:00 Respiratory Rate 20 04/07/18 10:00 Blood Pressure 126/80 04/07/18 10:00 O2 Sat by Pulse Oximetry (%) 96 04/06/18 22:00 Constitutional: Yes: Calm Eyes: Yes: Conjunctiva Clear HENT: Yes: Atraumatic Cardiovascular: Yes: S1, S2 Respiratory: Yes: CTA Bilaterally Gastrointestinal: Yes: Soft Genitourinary: Yes: Benson Present Musculoskeletal: Yes: Muscle Weakness Edema: Yes Edema: LLE: Trace, RLE: Trace Neurological: Yes: Oriented Psychiatric: Yes: Oriented Labs: CBC, BMP 04/07/18 07:30 04/07/18 07:30 INR, PTT INR 0.96 (0.83-1.09) 03/31/18 17:30 Problem List - Problems (1) CKD (chronic kidney disease) Code(s): N18.9 - CHRONIC KIDNEY DISEASE, UNSPECIFIED Assessment/Plan Current Medications Generic Name Dose Route Start Last Admin Trade Name Freq PRN Reason Stop Dose Admin Acetaminophen 1,000 mg 04/07/18 11:36 Ofirmev Injection - IVPB Q6H PRN PAIN OR FEVER Atorvastatin Calcium 10 mg 04/01/18 22:00 04/01/18 22:53 Lipitor - PO Not Given HS [facility] Bacitracin 1 applic 04/04/18 11:00 04/07/18 10:15 Bacitracin - TP 1 applic DAILY [facility] Administration Dextrose 25 gm 04/01/18 10:53 D50w (Vial) - IVPUSH PRN PRN hypoglycemia Heparin Sodium (Porcine) 5,000 unit 04/04/18 22:00 04/07/18 10:42 Heparin - SQ 5,000 unit BID [facility] Administration Ertapenem 1 gm/ Sodium 50 mls @ 100 mls/hr 04/03/18 12:30 04/07/18 10:11 Chloride IVPB 100 mls/hr DAILY [facility] Administration Protocol Potassium Chloride/Dextrose/Sod Cl 20 meq in 1,000 mls @ 75 mls/hr 04/05/18 18 :00 04/07/18 11:50 D5-1/2ns+20 Meq Kcl - IV 75 mls/hr ASDIR [facility] Administration Lorazepam 1 mg 04/07/18 11:32 Ativan Injection - IVPUSH BID PRN ANXIETY Losartan Potassium 50 mg 04/02/18 11:56 Cozaar - PO DAILY [facility] Mirtazapine 15 mg 04/03/18 22:00 04/06/18 22:25 Remeron - PO Not Given HS [facility] Ondansetron HCl 4 mg 03/31/18 22:01 04/02/18 04:25 Zofran Injection IVPUSH 4 mg Q6H PRN Administration NAUSEA Pantoprazole Sodium 40 mg 04/04/18 22:00 04/07/18 10:43 Protonix - PO Not Given BID [facility] Potassium Chloride 20 meq 04/04/18 10:00 04/07/18 10:43 Potassium Chloride Oral Liquid PO Not Given BID [facility] Simethicone 80 mg 04/03/18 14:00 04/07/18 10:43 Mylicon Liquid - PO Not Given QID [facility] Laboratory Tests 04/07/18 07:30 Magnesium 1.3 L Impression 1. CKD 2. COPD 3. CHF 4. dyspnea 5. CVA 6. HLD 7. hypokalemia 8. abdominal pain 9. malnutrition Plan - renal function is stabilizing - encourage PO intake - potassium stable - replace mag - will follow Dr Lewis
[2018-04-07 12:23] LABS: ANISOCYTOSIS 1+; MACROCYTOSIS 1+
[2018-04-07] MEDS: ACETAMINOPHEN 1000 MG/100 ML VIAL (NON FORMULARY) IVPB PRN (17:20)
[2018-04-07] MEDS: MIRTAZAPINE 15 MG TABLET (FP) PO SCH (21:32)
[2018-04-08] MEDS: LORazepam 2 MG/ML SDV VIAL IVPUSH PRN (00:40)
[2018-04-08] MEDS: D5-1/2NS+20 MEQ KCL - 20 MEQ/1,000 ML INFUS.BAG IV SCH ×2 (03:35→18:40)
[2018-04-08 08:58] LABS: ANION GAP 10 MMOL/L (8-16); BLOOD UREA NITROGEN 4 mg/dL (7-18); CALCIUM 8.3 mg/dL (8.5-10.1); CHLORIDE 111 mmol/L (98-107); CO2 21 mmol/L (21-32); GLUCOSE,RANDOM 95 mg/dL (74-106); POTASSIUM 4.4 mmol/L (3.5-5.1); SODIUM 142 mmol/L (136-145)
[2018-04-08 09:00] LABS: CREATININE 0.4 mg/dL (0.55-1.02)
[2018-04-08] MEDS ORDERED: PT OWN MED DRAWER 7, Y5N ONE (09:26)
[2018-04-08 09:37] VITALS: BP 141/61; PULSE 87; TEMP 98.3
[2018-04-08] MEDS ORDERED: MAGNESIUM OXIDE 400 MG TABLET (FP) PO SCH (10:00)
[2018-04-08] MEDS: SIMETHICONE 40 MG/0.6 ML BOTTLE PO SCH ×3 (10:08→17:21)
[2018-04-08] MEDS: HEPARIN NA (PORCINE) 5,000 UNITS/ML 1ML VIAL SQ SCH ×2 (10:08→21:34)
[2018-04-08] MEDS: BACITRACIN 15 GM TUBE TOPICAL OINTMENT TP SCH (10:08)
[2018-04-08] MEDS: ERTAPENEM SODIUM 1 GM in SODIUM CHLORIDE 50 ML IVPB SCH (10:08)
[2018-04-08] MEDS: POTASSIUM CHLORIDE ORAL LIQUID 20 MEQ/15 ML PO SCH (10:09)
[2018-04-08] MEDS: PANTOPRAZOLE 40 MG TABLET (FP) PO SCH (10:09)
[2018-04-08] MEDS: ACETAMINOPHEN 1000 MG/100 ML VIAL (NON FORMULARY) IVPB PRN (12:41)
--- NOTE | 2018-04-08 12:45 | PN ---
Progress Note, Physician History of Present Illness: Pt seen and examined. She is refusing to eat. - Current Medication List Current Medications: Active Medications Acetaminophen (Ofirmev Injection -) 1,000 mg IVPB Q6H PRN PRN Reason: PAIN OR FEVER Last Admin: 04/07/18 17:20 Dose: 1,000 mg Atorvastatin Calcium (Lipitor -) 10 mg PO HS [facility] Last Admin: 04/01/18 22:53 Dose: Not Given Bacitracin (Bacitracin -) 1 applic TP DAILY [facility] Last Admin: 04/08/18 10:08 Dose: 1 applic Dextrose (D50w (Vial) -) 25 gm IVPUSH PRN PRN PRN Reason: hypoglycemia Heparin Sodium (Porcine) (Heparin -) 5,000 unit SQ BID [facility] Last Admin: 04/08/18 10:08 Dose: 5,000 unit Ertapenem 1 gm/ Sodium (Chloride) 50 mls @ 100 mls/hr IVPB DAILY [facility]; Protocol Last Admin: 04/08/18 10:08 Dose: 100 mls/hr Potassium Chloride/Dextrose/Sod Cl (D5-1/2ns+20 Meq Kcl -) 20 meq in 1,000 mls @ 75 mls/hr IV ASDIR [facility] Last Admin: 04/08/18 03:35 Dose: 75 mls/hr Lorazepam (Ativan Injection -) 1 mg IVPUSH BID PRN PRN Reason: ANXIETY Last Admin: 04/08/18 00:40 Dose: 1 mg Losartan Potassium (Cozaar -) 50 mg PO DAILY [facility] Magnesium Oxide (Mag-Ox -) 400 mg PO DAILY [facility] Last Admin: 04/08/18 10:08 Dose: Not Given Mirtazapine (Remeron -) 15 mg PO HS [facility] Last Admin: 04/07/18 21:32 Dose: Not Given Ondansetron HCl (Zofran Injection) 4 mg IVPUSH Q6H PRN PRN Reason: NAUSEA Last Admin: 04/02/18 04:25 Dose: 4 mg Pantoprazole Sodium (Protonix -) 40 mg PO BID [facility] Last Admin: 04/08/18 10:09 Dose: Not Given Potassium Chloride (Potassium Chloride Oral Liquid) 20 meq PO BID [facility] Last Admin: 04/08/18 10:09 Dose: Not Given Simethicone (Mylicon Liquid -) 80 mg PO QID [facility] Last Admin: 04/08/18 10:08 Dose: Not Given - Objective Vital Signs: Vital Signs Temperature 98.3 F 04/08/18 09:00 Pulse Rate 87 04/08/18 09:00 Respiratory Rate 20 04/08/18 09:00 Blood Pressure 141/61 04/08/18 09:00 O2 Sat by Pulse Oximetry (%) 95 04/07/18 22:00 Constitutional: Yes: No Distress Eyes: Yes: Conjunctiva Clear HENT: Yes: Atraumatic Cardiovascular: Yes: S1, S2 Respiratory: Yes: CTA Bilaterally Genitourinary: Yes: Simon Present Edema: Yes Edema: LLE: Trace, RLE: Trace Integumentary: Yes: Venous Stasis Changes Psychiatric: Yes: Agitated Labs: CBC, BMP 04/07/18 07:30 04/08/18 06:20 INR, PTT INR 0.96 (0.83-1.09) 03/31/18 17:30 Problem List - Problems (1) CKD (chronic kidney disease) Code(s): N18.9 - CHRONIC KIDNEY DISEASE, UNSPECIFIED Assessment/Plan Current Medications Generic Name Dose Route Start Last Admin Trade Name Freq PRN Reason Stop Dose Admin Acetaminophen 1,000 mg 04/07/18 11:36 04/07/18 17:20 Ofirmev Injection - IVPB 1,000 mg Q6H PRN Administration PAIN OR FEVER Atorvastatin Calcium 10 mg 04/01/18 22:00 04/01/18 22:53 Lipitor - PO Not Given HS [facility] Bacitracin 1 applic 04/04/18 11:00 04/08/18 10:08 Bacitracin - TP 1 applic DAILY [facility] Administration Dextrose 25 gm 04/01/18 10:53 D50w (Vial) - IVPUSH PRN PRN hypoglycemia Heparin Sodium (Porcine) 5,000 unit 04/04/18 22:00 04/08/18 10:08 Heparin - SQ 5,000 unit BID [facility] Administration Ertapenem 1 gm/ Sodium 50 mls @ 100 mls/hr 04/03/18 12:30 04/08/18 10:08 Chloride IVPB 100 mls/hr DAILY [facility] Administration Protocol Potassium Chloride/Dextrose/Sod Cl 20 meq in 1,000 mls @ 75 mls/hr 04/05/18 18 :00 04/08/18 03:35 D5-1/2ns+20 Meq Kcl - IV 75 mls/hr ASDIR [facility] Administration Lorazepam 1 mg 04/07/18 11:32 04/08/18 00:40 Ativan Injection - IVPUSH 1 mg BID PRN Administration ANXIETY Losartan Potassium 50 mg 04/02/18 11:56 Cozaar - PO DAILY [facility] Magnesium Oxide 400 mg 04/08/18 10:00 04/08/18 10:08 Mag-Ox - PO Not Given DAILY [facility] Mirtazapine 15 mg 04/03/18 22:00 04/07/18 21:32 Remeron - PO Not Given HS [facility] Ondansetron HCl 4 mg 03/31/18 22:01 04/02/18 04:25 Zofran Injection IVPUSH 4 mg Q6H PRN Administration NAUSEA Pantoprazole Sodium 40 mg 04/04/18 22:00 04/08/18 10:09 Protonix - PO Not Given BID [facility] Potassium Chloride 20 meq 04/04/18 10:00 04/08/18 10:09 Potassium Chloride Oral Liquid PO Not Given BID [facility] Simethicone 80 mg 04/03/18 14:00 04/08/18 10:08 Mylicon Liquid - PO Not Given QID [facility] Laboratory Tests 04/08/18 06:20 Magnesium 2.0 Impression 1. CKD 2. COPD 3. CHF 4. dyspnea 5. CVA 6. HLD 7. hypokalemia 8. abdominal pain 9. malnutrition Plan - pt is refusing to eat - mag level improved - monitor lytes - encourage PO intake, explained importance of PO intake to pt - can d/c simon - will follow PRN - will follow Dr Lewis
--- NOTE | 2018-04-08 18:34 | PN ---
Progress Note, Physician Chief Complaint: Nausea/vomiting History of Present Illness: extremely lethargic has been refusing meds and to eat extremely lethargic daughter at bedside - Current Medication List Current Medications: Active Medications Acetaminophen (Ofirmev Injection -) 1,000 mg IVPB Q6H PRN PRN Reason: PAIN OR FEVER Last Admin: 04/08/18 12:41 Dose: 1,000 mg Bacitracin (Bacitracin -) 1 applic TP DAILY [facility] Last Admin: 04/08/18 10:08 Dose: 1 applic Dextrose (D50w (Vial) -) 25 gm IVPUSH PRN PRN PRN Reason: hypoglycemia Heparin Sodium (Porcine) (Heparin -) 5,000 unit SQ BID [facility] Last Admin: 04/08/18 10:08 Dose: 5,000 unit Ertapenem 1 gm/ Sodium (Chloride) 50 mls @ 100 mls/hr IVPB DAILY [facility]; Protocol Last Admin: 04/08/18 10:08 Dose: 100 mls/hr Potassium Chloride/Dextrose/Sod Cl (D5-1/2ns+20 Meq Kcl -) 20 meq in 1,000 mls @ 75 mls/hr IV ASDIR [facility] Last Admin: 04/08/18 03:35 Dose: 75 mls/hr Lorazepam (Ativan Injection -) 1 mg IVPUSH BID PRN PRN Reason: ANXIETY Last Admin: 04/08/18 00:40 Dose: 1 mg Morphine Sulfate (Morphine Injection -) 1 mg IVPUSH Q4H PRN PRN Reason: PAIN LEVEL 6-10 Ondansetron HCl (Zofran Injection) 4 mg IVPUSH Q6H PRN PRN Reason: NAUSEA Last Admin: 04/02/18 04:25 Dose: 4 mg - Objective Vital Signs: Vital Signs Temperature 98.3 F 04/08/18 09:00 Pulse Rate 87 04/08/18 09:00 Respiratory Rate 20 04/08/18 09:00 Blood Pressure 141/61 04/08/18 09:00 O2 Sat by Pulse Oximetry (%) 95 04/07/18 22:00 Constitutional: Yes: Well Nourished, No Distress, Calm Cardiovascular: Yes: Regular Rate and Rhythm Respiratory: Yes: Regular Neurological: Yes: Alert, Lethargy, Pre-Existing Deficit Labs: CBC, BMP 04/07/18 07:30 04/08/18 06:20 INR, PTT INR 0.96 (0.83-1.09) 03/31/18 17:30 Problem List - Problems (1) Anxiety Assessment/Plan: -lorazepam IV BID PRN Code(s): F41.9 - ANXIETY DISORDER, UNSPECIFIED (2) Nausea & vomiting Assessment/Plan: -Cause unknown -Zofran PRN Code(s): R11.2 - NAUSEA WITH VOMITING, UNSPECIFIED (3) Dysphagia Assessment/Plan: -seen by swallow eval -MBS recently done -Seen by Neurology -Seen by psychiatry Code(s): R13.10 - DYSPHAGIA, UNSPECIFIED (4) Abnormal liver enzymes Assessment/Plan: -normal Code(s): R74.8 - ABNORMAL LEVELS OF OTHER SERUM ENZYMES (5) Hypokalemia Assessment/Plan: resolved -IVF to D5NS+KCl @ 75 cc/hr -Nephrology consult Code(s): E87.6 - HYPOKALEMIA (6) UTI (urinary tract infection) Assessment/Plan: -esbl in urine -On IV ertepenem Code(s): N39.0 - URINARY TRACT INFECTION, SITE NOT SPECIFIED (7) Hospice care patient Assessment/Plan: -Extensive conversation with daughter, pt DNR/DNI, no blood transfusions, no dialysis, IV abx okay -transfer to inpatient hospice care, consulted -d/c all po meds -continue IVF -D/C vitals except temperature -Scopolamine patch -acetaminophen and morphine PRN for pain Assessment/Plan see problem list
[2018-04-08] MEDS: SCOPOLAMINE HYDROBROMIDE 1 PATCH PATCH.TD72 TD SCH (18:42)
[2018-04-08] MEDS: MORPHINE SULFATE 2 MG/ML VIAL IVPUSH PRN (21:34)
[2018-04-09] MEDS: ACETAMINOPHEN 1000 MG/100 ML VIAL (NON FORMULARY) IVPB PRN ×2 (00:15→21:59)
[2018-04-09] MEDS: LORazepam 2 MG/ML SDV VIAL IVPUSH PRN ×2 (05:46→17:14)
[2018-04-09] MEDS: MORPHINE SULFATE 2 MG/ML VIAL IVPUSH PRN ×2 (06:49→17:14)
[2018-04-09] MEDS ORDERED: PT OWN MED DRAWER 7, Y5N ONE (09:40)
[2018-04-09] MEDS: HEPARIN NA (PORCINE) 5,000 UNITS/ML 1ML VIAL SQ SCH ×2 (09:47→22:00)
[2018-04-09] MEDS: ERTAPENEM SODIUM 1 GM in SODIUM CHLORIDE 50 ML IVPB SCH (09:49)
[2018-04-09] MEDS: BACITRACIN 15 GM TUBE TOPICAL OINTMENT TP SCH (09:49)
[2018-04-09] MEDS: D5-1/2NS+20 MEQ KCL - 20 MEQ/1,000 ML INFUS.BAG IV SCH (09:53)
--- NOTE | 2018-04-09 10:35 | PN ---
Progress Note, Physician Chief Complaint: Nausea/vomiting History of Present Illness: extremely lethargic On hospice care, awaiting inpatient hospice - Current Medication List Current Medications: Active Medications Acetaminophen (Ofirmev Injection -) 1,000 mg IVPB Q6H PRN PRN Reason: PAIN OR FEVER Last Admin: 04/09/18 00:15 Dose: 1,000 mg Bacitracin (Bacitracin -) 1 applic TP DAILY [facility] Last Admin: 04/09/18 09:49 Dose: 1 applic Dextrose (D50w (Vial) -) 25 gm IVPUSH PRN PRN PRN Reason: hypoglycemia Heparin Sodium (Porcine) (Heparin -) 5,000 unit SQ BID [facility] Last Admin: 04/09/18 09:47 Dose: 5,000 unit Ertapenem 1 gm/ Sodium (Chloride) 50 mls @ 100 mls/hr IVPB DAILY [facility]; Protocol Last Admin: 04/09/18 09:49 Dose: 100 mls/hr Potassium Chloride/Dextrose/Sod Cl (D5-1/2ns+20 Meq Kcl -) 20 meq in 1,000 mls @ 75 mls/hr IV ASDIR [facility] [place] Last Admin: 04/09/18 09:53 Dose: 75 mls/hr Lorazepam (Ativan Injection -) 1 mg IVPUSH BID PRN PRN Reason: ANXIETY Last Admin: 04/09/18 05:46 Dose: 1 mg Morphine Sulfate (Morphine Sulfate) 1 mg IVPUSH Q4H PRN PRN Reason: PAIN LEVEL 6-10 Last Admin: 04/09/18 06:49 Dose: 1 mg Ondansetron HCl (Zofran Injection) 4 mg IVPUSH Q6H PRN PRN Reason: NAUSEA Last Admin: 04/02/18 04:25 Dose: 4 mg Scopolamine HBr (Transderm-Scop -) 1 patch TD Q72H [facility] [place] Last Admin: 04/08/18 18:42 Dose: 1 patch - Objective Vital Signs: Vital Signs Temperature 98.3 F 04/08/18 09:00 Pulse Rate 87 04/08/18 09:00 Respiratory Rate 20 04/08/18 21:00 Blood Pressure 141/61 04/08/18 09:00 O2 Sat by Pulse Oximetry (%) 95 04/07/18 22:00 Constitutional: Yes: Well Nourished, No Distress, Calm Cardiovascular: Yes: Regular Rate and Rhythm Respiratory: Yes: Regular Neurological: Yes: Lethargy Labs: CBC, BMP 04/07/18 07:30 04/08/18 06:20 INR, PTT INR 0.96 (0.83-1.09) 03/31/18 17:30 Problem List - Problems (1) Anxiety Assessment/Plan: -lorazepam IV BID PRN Code(s): F41.9 - ANXIETY DISORDER, UNSPECIFIED (2) Nausea & vomiting Assessment/Plan: -resolved -on hospice Code(s): R11.2 - NAUSEA WITH VOMITING, UNSPECIFIED (3) Dysphagia Assessment/Plan: -maintain IVF -pleasure feeds if patient wants Code(s): R13.10 - DYSPHAGIA, UNSPECIFIED (4) Abnormal liver enzymes Assessment/Plan: -normal Code(s): R74.8 - ABNORMAL LEVELS OF OTHER SERUM ENZYMES (5) Hypokalemia Assessment/Plan: resolved -IVF to D5NS+KCl @ 75 cc/hr -Nephrology consult Code(s): E87.6 - HYPOKALEMIA (6) UTI (urinary tract infection) Assessment/Plan: -esbl in urine -On IV ertepenem Code(s): N39.0 - URINARY TRACT INFECTION, SITE NOT SPECIFIED (7) Hospice care patient Assessment/Plan: -Extensive conversation with daughter, pt DNR/DNI, no blood transfusions, no dialysis, IV abx okay -transfer to inpatient hospice care, consulted -d/c all po meds -continue IVF -D/C vitals except temperature -Scopolamine patch -acetaminophen and morphine PRN for pain Assessment/Plan see problem list DNR/DNI/MOLST forms signed by daughter Hospice protocol followed no Vitals to be done except temps only, acetaminophen if fever >100.0
--- NOTE | 2018-04-09 14:08 | PN ---
Progress Note, Physician History of Present Illness: Pt seen and examined at bedside. She is lethargic. Family are at bedside and have decided to place patient on palliative care. - Current Medication List Current Medications: Active Medications Acetaminophen (Ofirmev Injection -) 1,000 mg IVPB Q6H PRN PRN Reason: PAIN OR FEVER Last Admin: 04/09/18 00:15 Dose: 1,000 mg Bacitracin (Bacitracin -) 1 applic TP DAILY [facility] Last Admin: 04/09/18 09:49 Dose: 1 applic Dextrose (D50w (Vial) -) 25 gm IVPUSH PRN PRN PRN Reason: hypoglycemia Heparin Sodium (Porcine) (Heparin -) 5,000 unit SQ BID [facility] Last Admin: 04/09/18 09:47 Dose: 5,000 unit Ertapenem 1 gm/ Sodium (Chloride) 50 mls @ 100 mls/hr IVPB DAILY [facility]; Protocol Last Admin: 04/09/18 09:49 Dose: 100 mls/hr Potassium Chloride/Dextrose/Sod Cl (D5-1/2ns+20 Meq Kcl -) 20 meq in 1,000 mls @ 75 mls/hr IV ASDIR [facility] Last Admin: 04/09/18 09:53 Dose: 75 mls/hr Lorazepam (Ativan Injection -) 1 mg IVPUSH BID PRN PRN Reason: ANXIETY Last Admin: 04/09/18 05:46 Dose: 1 mg Morphine Sulfate (Morphine Sulfate) 1 mg IVPUSH Q4H PRN PRN Reason: PAIN LEVEL 6-10 Last Admin: 04/09/18 06:49 Dose: 1 mg Ondansetron HCl (Zofran Injection) 4 mg IVPUSH Q6H PRN PRN Reason: NAUSEA Last Admin: 04/02/18 04:25 Dose: 4 mg Scopolamine HBr (Transderm-Scop -) 1 patch TD Q72H [facility] Last Admin: 04/08/18 18:42 Dose: 1 patch - Objective Vital Signs: Vital Signs Temperature 98.3 F 04/08/18 09:00 Pulse Rate 87 04/08/18 09:00 Respiratory Rate 20 04/09/18 09:00 Blood Pressure 141/61 04/08/18 09:00 O2 Sat by Pulse Oximetry (%) 95 04/07/18 22:00 Constitutional: Yes: Mild Distress Cardiovascular: Yes: S1, S2 Respiratory: Yes: On Nasal O2 Gastrointestinal: Yes: Soft Genitourinary: Yes: Simon Present Edema: LLE: Trace, RLE: Trace Labs: CBC, BMP 04/07/18 07:30 04/08/18 06:20 INR, PTT INR 0.96 (0.83-1.09) 03/31/18 17:30 Problem List - Problems (1) CKD (chronic kidney disease) Code(s): N18.9 - CHRONIC KIDNEY DISEASE, UNSPECIFIED Assessment/Plan Current Medications Generic Name Dose Route Start Last Admin Trade Name Freq PRN Reason Stop Dose Admin Acetaminophen 1,000 mg 04/07/18 11:36 04/09/18 00:15 Ofirmev Injection - IVPB 1,000 mg Q6H PRN Administration PAIN OR FEVER Bacitracin 1 applic 04/04/18 11:00 04/09/18 09:49 Bacitracin - TP 1 applic DAILY [facility] Administration Dextrose 25 gm 04/01/18 10:53 D50w (Vial) - IVPUSH PRN PRN hypoglycemia Heparin Sodium (Porcine) 5,000 unit 04/04/18 22:00 04/09/18 09:47 Heparin - SQ 5,000 unit BID [facility] Administration Ertapenem 1 gm/ Sodium 50 mls @ 100 mls/hr 04/03/18 12:30 04/09/18 09:49 Chloride IVPB 100 mls/hr DAILY [facility] Administration Protocol Potassium Chloride/Dextrose/Sod Cl 20 meq in 1,000 mls @ 75 mls/hr 04/05/18 18 :00 04/09/18 09:53 D5-1/2ns+20 Meq Kcl - IV 75 mls/hr ASDIR [facility] Administration Lorazepam 1 mg 04/07/18 11:32 04/09/18 05:46 Ativan Injection - IVPUSH 1 mg BID PRN Administration ANXIETY Morphine Sulfate 1 mg 04/08/18 18:26 04/09/18 06:49 Morphine Sulfate IVPUSH 1 mg Q4H PRN Administration PAIN LEVEL 6-10 Ondansetron HCl 4 mg 03/31/18 22:01 04/02/18 04:25 Zofran Injection IVPUSH 4 mg Q6H PRN Administration NAUSEA Scopolamine HBr 1 patch 04/08/18 18:30 04/08/18 18:42 Transderm-Scop - TD 1 patch Q72H [facility] Administration Impression 1. CKD 2. COPD 3. CHF 4. dyspnea 5. CVA 6. HLD 7. hypokalemia 8. abdominal pain 9. malnutrition Plan - pt lethargic - spoke to family, her daughter is at bedside. Pt is now on comfort care - discussed with medical team - will follow as needed - simon left in place for comfort Dr Lewis
[2018-04-10] MEDS: D5-1/2NS+20 MEQ KCL - 20 MEQ/1,000 ML INFUS.BAG IV SCH ×3 (01:10→21:37)
[2018-04-10] MEDS: MORPHINE SULFATE 2 MG/ML VIAL IVPUSH PRN ×4 (01:23→22:46)
--- NOTE | 2018-04-10 08:20 | PN ---
Progress Note, Physician Chief Complaint: EVENTS AND NOTES REVIEWED LETHARGIC AID BEDSIDE - Current Medication List Current Medications: Active Medications Bacitracin (Bacitracin -) 1 applic TP DAILY [facility] Last Admin: 04/09/18 09:49 Dose: 1 applic Dextrose (D50w (Vial) -) 25 gm IVPUSH PRN PRN PRN Reason: hypoglycemia Heparin Sodium (Porcine) (Heparin -) 5,000 unit SQ BID [facility] Last Admin: 04/09/18 22:00 Dose: 5,000 unit Ertapenem 1 gm/ Sodium (Chloride) 50 mls @ 100 mls/hr IVPB DAILY [facility]; Protocol Last Admin: 04/09/18 09:49 Dose: 100 mls/hr Potassium Chloride/Dextrose/Sod Cl (D5-1/2ns+20 Meq Kcl -) 20 meq in 1,000 mls @ 75 mls/hr IV ASDIR [facility] Last Admin: 04/10/18 01:10 Dose: 75 mls/hr Lorazepam (Ativan Injection -) 1 mg IVPUSH BID PRN PRN Reason: ANXIETY Last Admin: 04/09/18 17:14 Dose: 1 mg Morphine Sulfate (Morphine Sulfate) 1 mg IVPUSH Q4H PRN PRN Reason: PAIN LEVEL 6-10 Last Admin: 04/10/18 06:39 Dose: 1 mg Ondansetron HCl (Zofran Injection) 4 mg IVPUSH Q6H PRN PRN Reason: NAUSEA Last Admin: 04/02/18 04:25 Dose: 4 mg Scopolamine HBr (Transderm-Scop -) 1 patch TD Q72H [facility] Last Admin: 04/08/18 18:42 Dose: 1 patch - Objective Vital Signs: Vital Signs Temperature 98.3 F 04/08/18 09:00 Pulse Rate 87 04/08/18 09:00 Respiratory Rate 20 04/09/18 21:00 Blood Pressure 141/61 04/08/18 09:00 O2 Sat by Pulse Oximetry (%) 95 04/07/18 22:00 Constitutional: Yes: Other Cardiovascular: Yes: Pulse Irregular Respiratory: Yes: On Nasal O2 Genitourinary: Yes: Benson Present, Incontinence Musculoskeletal: Yes: Muscle Weakness Edema: Yes Neurological: Yes: Pre-Existing Deficit, Unresponsive Labs: CBC, BMP 04/07/18 07:30 04/08/18 06:20 INR, PTT INR 0.96 (0.83-1.09) 03/31/18 17:30 Problem List - Problems (1) Duodenal ulcer Code(s): K26.9 - DUODENAL ULCER, UNSP ACUTE OR CHRONIC, W/O HEMOR OR PERF (2) Dysphagia Code(s): R13.10 - DYSPHAGIA, UNSPECIFIED (4) Hypoalbuminemia due to protein-calorie malnutrition Code(s): E46 - UNSPECIFIED PROTEIN-CALORIE MALNUTRITION (5) Dementia Code(s): F03.90 - UNSPECIFIED DEMENTIA WITHOUT BEHAVIORAL DISTURBANCE Assessment/Plan HOSPICE CARE NO BLOOD DRAWS WILL ASK DAUGHTER IF SHE WANTS IVF CONTINUED COMFORT PAIN CONTROL
[2018-04-10] MEDS: ERTAPENEM SODIUM 1 GM in SODIUM CHLORIDE 50 ML IVPB SCH (10:23)
[2018-04-10] MEDS: HEPARIN NA (PORCINE) 5,000 UNITS/ML 1ML VIAL SQ SCH ×2 (10:23→21:37)
[2018-04-10] MEDS: BACITRACIN 15 GM TUBE TOPICAL OINTMENT TP SCH (10:25)
[2018-04-10] MEDS: LORazepam 2 MG/ML SDV VIAL IVPUSH PRN ×2 (10:26→20:56)
[2018-04-11] MEDS: D5-1/2NS+20 MEQ KCL - 20 MEQ/1,000 ML INFUS.BAG IV SCH ×3 (05:46→20:11)
--- NOTE | 2018-04-11 08:05 | PN ---
Progress Note, Physician Chief Complaint: ASLEEP ON HOSPICE CARE - Current Medication List Current Medications: Active Medications Bacitracin (Bacitracin -) 1 applic TP DAILY [facility] Last Admin: 04/10/18 10:25 Dose: 1 applic Dextrose (D50w (Vial) -) 25 gm IVPUSH PRN PRN PRN Reason: hypoglycemia Heparin Sodium (Porcine) (Heparin -) 5,000 unit SQ BID [facility] Last Admin: 04/10/18 21:37 Dose: 5,000 unit Potassium Chloride/Dextrose/Sod Cl (D5-1/2ns+20 Meq Kcl -) 20 meq in 1,000 mls @ 75 mls/hr IV ASDIR [facility] Last Admin: 04/11/18 05:46 Dose: 75 mls/hr Lorazepam (Ativan Injection -) 1 mg IVPUSH BID PRN PRN Reason: ANXIETY Last Admin: 04/10/18 20:56 Dose: 1 mg Morphine Sulfate (Morphine Sulfate) 1 mg IVPUSH Q4H PRN PRN Reason: PAIN LEVEL 6-10 Last Admin: 04/10/18 22:46 Dose: 1 mg Ondansetron HCl (Zofran Injection) 4 mg IVPUSH Q6H PRN PRN Reason: NAUSEA Last Admin: 04/02/18 04:25 Dose: 4 mg Scopolamine HBr (Transderm-Scop -) 1 patch TD Q72H [facility] Last Admin: 04/08/18 18:42 Dose: 1 patch - Objective Vital Signs: Vital Signs Temperature 98.3 F 04/08/18 09:00 Pulse Rate 87 04/08/18 09:00 Respiratory Rate 20 04/09/18 21:00 Blood Pressure 141/61 04/08/18 09:00 O2 Sat by Pulse Oximetry (%) 95 04/10/18 22:00 Constitutional: Yes: No Distress Eyes: Yes: Other HENT: Yes: WNL Neck: Yes: WNL Cardiovascular: Yes: WNL Respiratory: Yes: On Nasal O2 Gastrointestinal: Yes: Other Genitourinary: Yes: Incontinence Musculoskeletal: Yes: Muscle Weakness Extremities: Yes: Other Edema: Yes Peripheral Pulses WNL: Yes Integumentary: Yes: Other Wound/Incision: Yes: Other Neurological: Yes: Pre-Existing Deficit ...Motor Strength: LLE, RLE Psychiatric: Yes: Other Labs: CBC, BMP 04/07/18 07:30 04/08/18 06:20 INR, PTT INR 0.96 (0.83-1.09) 03/31/18 17:30 Problem List - Problems (1) Duodenal ulcer Code(s): K26.9 - DUODENAL ULCER, UNSP ACUTE OR CHRONIC, W/O HEMOR OR PERF (2) Dysphagia Code(s): R13.10 - DYSPHAGIA, UNSPECIFIED (4) Hypoalbuminemia due to protein-calorie malnutrition Code(s): E46 - UNSPECIFIED PROTEIN-CALORIE MALNUTRITION (5) Dementia Code(s): F03.90 - UNSPECIFIED DEMENTIA WITHOUT BEHAVIORAL DISTURBANCE Assessment/Plan HOSPICE CARE NO BLOOD DRAWS WILL ASK DAUGHTER IF SHE WANTS IVF CONTINUED COMFORT PAIN CONTROL
[2018-04-11] MEDS: HEPARIN NA (PORCINE) 5,000 UNITS/ML 1ML VIAL SQ SCH (09:06)
[2018-04-11] MEDS: MORPHINE SULFATE 2 MG/ML VIAL IVPUSH PRN ×2 (09:06→13:43)
[2018-04-11] MEDS: BACITRACIN 15 GM TUBE TOPICAL OINTMENT TP SCH (09:08)
[2018-04-11] MEDS: SCOPOLAMINE HYDROBROMIDE 1 PATCH PATCH.TD72 TD SCH (18:26)
[2018-04-11] MEDS: LORazepam 2 MG/ML SDV VIAL IVPUSH PRN (22:38)
[2018-04-12] MEDS: MORPHINE SULFATE 2 MG/ML VIAL IVPUSH PRN ×3 (09:18→21:34)
[2018-04-12] MEDS: BACITRACIN 15 GM TUBE TOPICAL OINTMENT TP SCH (09:19)
[2018-04-12] MEDS: D5-1/2NS+20 MEQ KCL - 20 MEQ/1,000 ML INFUS.BAG IV SCH ×2 (09:22→21:35)
--- NOTE | 2018-04-12 10:43 | PN ---
Progress Note, Physician - Current Medication List Current Medications: Active Medications Bacitracin (Bacitracin -) 1 applic TP DAILY [facility] Last Admin: 04/12/18 09:19 Dose: 1 applic Dextrose (D50w (Vial) -) 25 gm IVPUSH PRN PRN PRN Reason: hypoglycemia Potassium Chloride/Dextrose/Sod Cl (D5-1/2ns+20 Meq Kcl -) 20 meq in 1,000 mls @ 75 mls/hr IV ASDIR [facility] Last Admin: 04/12/18 09:22 Dose: 75 mls/hr Lorazepam (Ativan Injection -) 1 mg IVPUSH BID PRN PRN Reason: ANXIETY Last Admin: 04/11/18 22:38 Dose: 1 mg Morphine Sulfate (Morphine Sulfate) 1 mg IVPUSH Q4H PRN PRN Reason: PAIN LEVEL 7 - 10 Last Admin: 04/12/18 09:18 Dose: 1 mg Ondansetron HCl (Zofran Injection) 4 mg IVPUSH Q6H PRN PRN Reason: NAUSEA Last Admin: 04/02/18 04:25 Dose: 4 mg Scopolamine HBr (Transderm-Scop -) 1 patch TD Q72H [facility] Last Admin: 04/11/18 18:26 Dose: 1 patch - Objective Vital Signs: Vital Signs Temperature 98.3 F 04/08/18 09:00 Pulse Rate 87 04/08/18 09:00 Respiratory Rate 20 04/09/18 21:00 Blood Pressure 141/61 04/08/18 09:00 O2 Sat by Pulse Oximetry (%) 95 04/11/18 22:00 Labs: CBC, BMP 04/07/18 07:30 04/08/18 06:20 INR, PTT INR 0.96 (0.83-1.09) 03/31/18 17:30 Problem List - Problems (1) Duodenal ulcer Code(s): K26.9 - DUODENAL ULCER, UNSP ACUTE OR CHRONIC, W/O HEMOR OR PERF (2) Dysphagia Code(s): R13.10 - DYSPHAGIA, UNSPECIFIED (4) Hypoalbuminemia due to protein-calorie malnutrition Code(s): E46 - UNSPECIFIED PROTEIN-CALORIE MALNUTRITION (5) Dementia Code(s): F03.90 - UNSPECIFIED DEMENTIA WITHOUT BEHAVIORAL DISTURBANCE
--- NOTE | 2018-04-12 10:46 | PN ---
Progress Note (short form) - Note Progress Note: HOSPICE CARE COMFORT MEASURES NO LAB DRAWS NO AGGRESSIVE INTERVENTIONS PATIENT ASLEEP AND COMFORTABLE Problem List - Problems (1) Duodenal ulcer Code(s): K26.9 - DUODENAL ULCER, UNSP ACUTE OR CHRONIC, W/O HEMOR OR PERF (2) Dysphagia Code(s): R13.10 - DYSPHAGIA, UNSPECIFIED (4) Hypoalbuminemia due to protein-calorie malnutrition Code(s): E46 - UNSPECIFIED PROTEIN-CALORIE MALNUTRITION (5) Dementia Code(s): F03.90 - UNSPECIFIED DEMENTIA WITHOUT BEHAVIORAL DISTURBANCE
[2018-04-13] MEDS: MORPHINE SULFATE 2 MG/ML VIAL IVPUSH PRN ×4 (02:50→21:32)
[2018-04-13] MEDS: BACITRACIN 15 GM TUBE TOPICAL OINTMENT TP SCH (10:10)
[2018-04-13] MEDS: D5-1/2NS+20 MEQ KCL - 20 MEQ/1,000 ML INFUS.BAG IV SCH ×2 (10:13→20:10)
[2018-04-13 12:11] VITALS: BMI 26.6
[2018-04-13] MEDS: LORazepam 2 MG/ML SDV VIAL IVPUSH PRN (13:57)
--- NOTE | 2018-04-13 15:28 | PN ---
Progress Note, Physician Chief Complaint: patient seen and examined agitated seen by inpatient hospice nurse did not qualify - Current Medication List Current Medications: Active Medications Bacitracin (Bacitracin -) 1 applic TP DAILY [facility] Last Admin: 04/13/18 10:10 Dose: 1 applic Dextrose (D50w (Vial) -) 25 gm IVPUSH PRN PRN PRN Reason: hypoglycemia Potassium Chloride/Dextrose/Sod Cl (D5-1/2ns+20 Meq Kcl -) 20 meq in 1,000 mls @ 75 mls/hr IV ASDIR [facility] Last Admin: 04/13/18 10:13 Dose: 75 mls/hr Lorazepam (Ativan Injection -) 1 mg IVPUSH BID PRN PRN Reason: ANXIETY Last Admin: 04/13/18 13:57 Dose: 1 mg Morphine Sulfate (Morphine Sulfate) 1 mg IVPUSH Q4H PRN PRN Reason: PAIN LEVEL 7 - 10 Last Admin: 04/13/18 13:57 Dose: 1 mg Ondansetron HCl (Zofran Injection) 4 mg IVPUSH Q6H PRN PRN Reason: NAUSEA Last Admin: 04/02/18 04:25 Dose: 4 mg Scopolamine HBr (Transderm-Scop -) 1 patch TD Q72H [facility] Last Admin: 04/11/18 18:26 Dose: 1 patch - Objective Vital Signs: Vital Signs Temperature 98.3 F 04/08/18 09:00 Pulse Rate 87 04/08/18 09:00 Respiratory Rate 20 04/09/18 21:00 Blood Pressure 141/61 04/08/18 09:00 O2 Sat by Pulse Oximetry (%) 95 04/11/18 22:00 Constitutional: Yes: Anxious Neck: Yes: Trachea Midline Cardiovascular: Yes: Regular Rate and Rhythm, S1, S2 Respiratory: Yes: Diminished Gastrointestinal: Yes: Normal Bowel Sounds, Soft Genitourinary: Yes: Benson Present Labs: CBC, BMP 04/07/18 07:30 04/08/18 06:20 INR, PTT INR 0.96 (0.83-1.09) 03/31/18 17:30 Problem List - Problems (1) Duodenal ulcer Assessment/Plan: no EGD or furhter work up comfort care Code(s): K26.9 - DUODENAL ULCER, UNSP ACUTE OR CHRONIC, W/O HEMOR OR PERF (2) Hospice care patient Assessment/Plan: awaiting for bed at hospice facility ivf pain control scoploamine patch lorazepam prn
--- NOTE | 2018-04-14 00:11 | HOSP ---
Subjective - Review of Symptoms Events since last encounter: Hospitalist Encounter Was notified by the RN, that the patient's hand with the IV site appears swollen , but the site flushes. Was asked to come and evaluate. Subjective: Patient is pending hospice facility and is on comfort measures only Physical Examination Vital Signs: Vital Signs Temperature 98.3 F 04/08/18 09:00 Pulse Rate 87 04/08/18 09:00 Respiratory Rate 20 04/09/18 21:00 Blood Pressure 141/61 04/08/18 09:00 O2 Sat by Pulse Oximetry (%) 95 04/11/18 22:00 Labs: CBC, BMP 04/07/18 07:30 04/08/18 06:20
[2018-04-14] MEDS: LORazepam 2 MG/ML SDV VIAL IVPUSH PRN ×2 (02:08→16:20)
[2018-04-14] MEDS: BACITRACIN 15 GM TUBE TOPICAL OINTMENT TP SCH (10:22)
--- NOTE | 2018-04-14 10:54 | DS ---
Physical Examination Vital Signs: Vital Signs Temperature 98.3 F 04/08/18 09:00 Pulse Rate 87 04/08/18 09:00 Respiratory Rate 20 04/09/18 21:00 Blood Pressure 141/61 04/08/18 09:00 O2 Sat by Pulse Oximetry (%) 95 04/11/18 22:00 Constitutional: Yes: Calm Cardiovascular: Yes: Regular Rate and Rhythm, S1, S2 Respiratory: Yes: Diminished Gastrointestinal: Yes: Normal Bowel Sounds, Soft Extremities: Yes: Other (scd) Neurological: Yes: Confusion Labs: CBC, BMP 04/07/18 07:30 04/08/18 06:20 Discharge Summary Reason For Visit: HISTORY OF FOOD INTOLERANCE/NAUSEA AND VOMITING Current Active Problems Abnormal liver enzymes (Acute) Duodenal ulcer (Acute) Dysphagia (Acute) History of food intolerance (Acute) Hospice care patient (Acute) Hypoalbuminemia due to protein-calorie malnutrition (Acute) Nausea & vomiting (Acute) Nausea and vomiting (Acute) Refuses to eat (Acute) Other Procedures: UGIS- post bulb duodenal ulcer. HIDA scan done Hospital Course: Admission History of Present Illness: This is a 87 y/o woman with a past medical history of COPD, Bronchitis, Giant Cell Temporal Arteritis, HLD, HTN, Diverticulosis, GERD, CHF, HTN, Paroxsymal Atrial Fibrillation, Dementia. Who presents to the ED from home with her CHART WRITER for decreased oral intake, abdominal pain and vomiting x11 days. Per the CHART WRITER, the patient has been vomiting every meal she has consumed since a couple of days after she was discharged from [facility]. She was admitted 03/09/18 for decreased oral intake and nausea, was diagnosed with a partial SBO and hypokalemia, and was discharged on 03/18/18. Pt also complains of left flank pain, better with rest, worse with movement or palpation, since she left the hospital. Pt admits to generalized weakness and lightheadedness. Pt denies chest pain, shortness of breath, palpitations, cough, blood in stool, hematuria, dysuria, dizziness, limb weakness, fever, chills, sweats. 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 Cardiovascular: Yes: AFIB, CAD, HTN, Hyperlipdemia Pulmonary: Yes: COPD Gastrointestinal: Yes: Gastritis, GERD Renal/: Yes: UTI Musculoskeletal: Yes: Chronic low back pain, Osteoarthritis, Other (compresion fx) Rheumatology: Yes: Other (ct ds) Endocrine: Yes: Other (osteoporosis) - Past Surgical History Past Surgical History: Yes: Cholecystectomy - Smoking History Smoking history: Former smoker Have you smoked in the past 12 months: No Aproximately how many cigarettes per day: 0 If you are a former smoker, when did you quit?: many years ago in hospital: seen by GI family doesnt want EGD no aggresive intervention got ivf and renal function improved family made patient DNR/DNI comfort care awaiting bed at SNF for hospice Condition: Guarded - Instructions Referrals: Lashanda Dumont MD [Primary Care Provider] - Disposition: [facility] - Home Medications Comprehensive Discharge Medication List: Ambulatory Orders Alprazolam 0.25 mg PO BID 03/14/15 Atorvastatin Ca [Lipitor] 10 mg PO HS 03/14/15 Furosemide [Lasix -] 40 mg PO BID 03/14/15 Losartan Potassium 50 mg PO DAILY 03/14/15 Mesalamine [Lialda] 3.6 gm PO DAILY 03/14/15 Ranitidine [Zantac -] 150 mg PO DAILY 03/14/15 Cholecalciferol (Vitamin D3) [Vitamin D3] 1,000 unit PO DAILY 01/22/18 Cyanocobalamin (Vitamin B-12) [Vitamin B-12] 2,500 mcg SL ASDIR 01/22/18 Prednisone 5 mg PO BID #100 tablet 01/26/18 Primidone 50 mg PO DAILY 03/09/18
[2018-04-14] MEDS: MORPHINE SULFATE 2 MG/ML VIAL IVPUSH PRN (16:20)
[2018-04-14] MEDS: SCOPOLAMINE HYDROBROMIDE 1 PATCH PATCH.TD72 TD SCH (17:35)
[2018-04-15] MEDS: MORPHINE SULFATE 2 MG/ML VIAL IVPUSH PRN ×3 (00:39→11:57)
[2018-04-15] MEDS: LORazepam 2 MG/ML SDV VIAL IVPUSH PRN (05:01)
--- NOTE | 2018-04-15 09:59 | DS ---
Physical Examination Vital Signs: Vital Signs Temperature 98.3 F 04/08/18 09:00 Pulse Rate 87 04/08/18 09:00 Respiratory Rate 20 04/09/18 21:00 Blood Pressure 141/61 04/08/18 09:00 O2 Sat by Pulse Oximetry (%) 92 L 04/14/18 21:00 Cardiovascular: Yes: S1, S2 Respiratory: Yes: Diminished Gastrointestinal: Yes: Normal Bowel Sounds, Soft Neurological: Yes: Weakness Labs: CBC, BMP 04/07/18 07:30 04/08/18 06:20 Discharge Summary Reason For Visit: HISTORY OF FOOD INTOLERANCE/NAUSEA AND VOMITING Current Active Problems Abnormal liver enzymes (Acute) Duodenal ulcer (Acute) Dysphagia (Acute) History of food intolerance (Acute) Hospice care patient (Acute) Hypoalbuminemia due to protein-calorie malnutrition (Acute) Nausea & vomiting (Acute) Nausea and vomiting (Acute) Refuses to eat (Acute) Hospital Course: This is a 87 y/o woman with a past medical history of COPD, Bronchitis, Giant Cell Temporal Arteritis, HLD, HTN, Diverticulosis, GERD, CHF, HTN, Paroxsymal Atrial Fibrillation, Dementia. Who presents to the ED from home with her CVT TECH for decreased oral intake, abdominal pain and vomiting x11 days. Per the CVT TECH, the patient has been vomiting every meal she has consumed since a couple of days after she was discharged from [facility]. She was admitted 03/09/18 for decreased oral intake and nausea, was diagnosed with a partial SBO and hypokalemia, and was discharged on 03/18/18. Pt also complains of left flank pain, better with rest, worse with movement or palpation, since she left the hospital. Pt admits to generalized weakness and lightheadedness. Pt denies chest pain, shortness of breath, palpitations, cough, blood in stool, hematuria, dysuria, dizziness, limb weakness, fever, chills, sweats. 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: Dementia Cardiovascular: Yes: AFIB, CAD, HTN, Hyperlipdemia Pulmonary: Yes: COPD Gastrointestinal: Yes: Gastritis, GERD Renal/: Yes: UTI Musculoskeletal: Yes: Chronic low back pain, Osteoarthritis, Other (compresion fx) Rheumatology: Yes: Other (ct ds) Endocrine: Yes: Other (osteoporosis) - Past Surgical History Past Surgical History: Yes: Cholecystectomy - Smoking History Smoking history: Former smoker Have you smoked in the past 12 months: No Aproximately how many cigarettes per day: 0 If you are a former smoker, when did you quit?: many years ago in hospital: seen by GI family doesnt want EGD no aggresive intervention got ivf and renal function improved family made patient DNR/DNI comfort care awaiting bed at SNF for hospice Condition: Guarded Condition: Guarded - Instructions Referrals: Lashanda Dumont MD [Primary Care Provider] - Disposition: LONG-TERM FACILITY - Home Medications Comprehensive Discharge Medication List: Ambulatory Orders Atorvastatin Ca [Lipitor] 10 mg PO HS 03/14/15 Losartan Potassium 50 mg PO DAILY 03/14/15 Mesalamine [Lialda] 3.6 gm PO DAILY 03/14/15 Ranitidine [Zantac -] 150 mg PO DAILY 03/14/15 Cholecalciferol (Vitamin D3) [Vitamin D3] 1,000 unit PO DAILY 01/22/18 Cyanocobalamin (Vitamin B-12) [Vitamin B-12] 2,500 mcg SL ASDIR 01/22/18 Prednisone 5 mg PO BID #100 tablet 01/26/18 Primidone 50 mg PO DAILY 03/09/18 Bacitracin - [Bacitracin Topical Ointment -] 1 applic TP DAILY tube 04/14/18 LORazepam [Ativan Injection -] 1 mg IVPUSH BID PRN #7 vial MDD 2 04/14/18 Morphine Sulfate 1 mg IVPUSH Q4H PRN #7 vial MDD 4 04/14/18 Scopolamine Hydrobromide [Transderm-Scop -] 1 patch TD Q72H patch.[id number]
[2018-04-15] MEDS: BACITRACIN 15 GM TUBE TOPICAL OINTMENT TP SCH (10:08)
== END 2018-04-15 12:58 | disposition hospice, inpatient (51) | DRG 884 ==
LOC: JER 16:13 → JERBED 22:02 → UNDOADMOB 22:04 → J5S 04-01 09:14 → JERBED 04-01 09:14 → INTOOBSV 04-02 12:44 → OBSVTOIN 04-02 12:44 → J6S 04-03 18:48
PROVIDERS: ADMIT Internal Medicine; ATTEND Family Medicine
DX: F03.90 Unspecified dementia, unspecified severity, without behavioral disturbance, psychotic disturbance, mood disturbance, and anxiety (principal); N39.0 Urinary tract infection, site not specified; E46 Unspecified protein-calorie malnutrition; I13.0 Hypertensive heart and chronic kidney disease with heart failure and stage 1 through stage 4 chronic kidney disease, or unspecified chronic kidney disease; K26.9 Duodenal ulcer, unspecified as acute or chronic, without hemorrhage or perforation; R11.2 Nausea with vomiting, unspecified; E87.6 Hypokalemia; R74.8 Abnormal levels of other serum enzymes; F41.9 Anxiety disorder, unspecified; N18.9 Chronic kidney disease, unspecified; I50.9 Heart failure, unspecified; R13.10 Dysphagia, unspecified; I48.0 Paroxysmal atrial fibrillation; E78.5 Hyperlipidemia, unspecified; J44.9 Chronic obstructive pulmonary disease, unspecified; K21.9 Gastro-esophageal reflux disease without esophagitis; G62.9 Polyneuropathy, unspecified; R33.9 Retention of urine, unspecified; B96.20 Unspecified Escherichia coli [E. coli] as the cause of diseases classified elsewhere; Z16.12 Extended spectrum beta lactamase (ESBL) resistance
CPT/HCPCS: 36415; 70450-TC; 71045-TC-FY; 74019-TC-FY; 74176-TC; 74220-TC-FY; 74240-TC-FY; 78226-TC; 80048; 80053; 80076; 81003; 81015; 82550; 82607; 82962; 83605; 83735; 84436; 84439; 84443; 84484; 85025; 85610; 85651; 85730; 86140; 87086; 87186; 93005; 93010; 99283-25; A9537; G0378; J0131; J1644